=== PATIENT | male | born 1965 | race Caucasian/White ===

== ENCOUNTER 2018-06-03 16:38 | Outpatient (REF) | payer BC, SELFPAY ==
[2018-06-03 19:11] LABS: Anion Gap 8.8 mmol/L (3-11); BUN 12 mg/dL (7-18); CO2 28.2 mmol/L (21.0-32.0); CREATININE 1.04 mg/dL (0.70-1.30); Chloride 101 mmol/L (98-107); Cholesterol 250 mg/dL (50-200); Glucose 130 mg/dL (70-100); HDL Cholesterol 23 mg/dL (40-60); LDL CHOLESTEROL 75 mg/dL (<100); Potassium 4.3 mmol/L (3.5-5.1); Sodium 138 mmol/L (136-145); Triglyceride 843 mg/dL (30-150)
== END 2018-06-03 16:58 ==
LOC: NCHCN 16:38
PROVIDERS: PCP Internal Medicine; Visit Provider Internal Medicine
DX: Z13.220 Encounter for screening for lipoid disorders (principal); Z13.228 Encounter for screening for other metabolic disorders; Z00.00 Encounter for general adult medical examination without abnormal findings
CPT/HCPCS: 80048; 80061; 83721

== ENCOUNTER 2018-07-29 06:28 | Day surgery (SDC) | payer BC, SELFPAY ==
[2018-07-29 06:44] VITALS: BP 117/79; PULSE 84; RESP 18; TEMP 35; O2SAT 95
[2018-07-29] MEDS: Lactated Ringers 1,000 ML 80 ML IV (06:52)
--- NOTE | 2018-07-29 07:45 | BOWEL_PTH ---
PATIENT: Sunday Lainez LOC: [facility] U#:[id number] AGE/SX: 52/M ROOM: RE07/29/[address]: Luisana Demarco : 1965 BED: DIS: 07/29/2018 SPEC #: [id number] RECD: 07/29/18 12:58 STATUS: SIMONE HERNANDEZ #: [id number] MARGO: 07/29/18 07:[address]: Luisana Demarco DEPT: Surgical Specimen RECD BY: Syeda Zavala ENTERED: 07/29/18 13:01 SP TYPE: Bowel OTHR DR: Enrique Parikh Tissues: 1 - BIOPSY BOWEL 2 - BIOPSY BOWEL Procedures: GROSS AND MICRO LEVEL 4 Comments: [id number]
--- NOTE | 2018-07-29 08:11 | W.COLOREPORT ---
Date of service: 07/29/18 Time of Service: 08:11 Colonoscopy Report Date of procedure: 07/29/18 Pre-op diagnosis general: screening Procedure: polyps x3 Surgeon: Luisana Demarco Anesthesia proc note operative: MAC Estimated blood loss (mL): 2 Pathology: other (polyp x1 @ 60 X2 @ 20&25cm ) Complications: None Disposition: PACU Prep: Miralax Procedure Start Time: 07:35 Procedure End Time: 07:55 Procedure Description: Mr. Whitaker 52 old male seen the request of his PCP regarding routine colon cancer screening and is here today for colonoscopy. Informed consent was obtained explaining risks and benefits of the procedure including but not limited to bleeding infection perforation aspiration and complications and the anesthesia. Patient brought to endoscopy suite placed left lateral decubitus position. IV sedation is administered per the Department of anesthesia. Timeout is performed. Digital rectal exam was performed prior to beginning the procedure which reveals good tone, no hemorrhoids, prostate within normal limits. Previously lubricated move the scope was inserted in the rectum and insufflation was begun. The scope was passed up the rectosigmoid valves across the transverse colon down the ascending colon the cecum is achieved at 90 cm. Good prep is noted. there are no AVMs diverticuli or other abnormality apparent. he does have 3 small polyps. These do appear to be adenomatous. There is one at 60 cm and two at 20 cm. These are both removed with cold biting forcep. Specimen is retrieved. There is no bleeding noted. The scope was then withdrawn. Retroflexion is done. And there does not appear to be any hemorrhoidal disease. There is no signs of bleeding from the biopsy sites. Patient tolerated procedure well without complication and transferred to recovery room stable condition. Patient will need to have colonoscopy repeated in 3-5 years time depending on pathology results. We will contact patient with results of pathology thank you for allowing me to visit the care of this patient.
--- NOTE | 2018-07-29 08:15 | W.PM.DS.N ---
Date of service: 07/29/18 Time of Service: 08:15 DS: Diagnosis Discharge Diagnosis (1) Adenomatous polyp: Start date: 07/29/18 Status: Acute Asessment and Plan: x3 Discharge Plan Disposition Patient Disposition: HOME Condition: Good Discharge Details Reason For Visit: SCREENING Attending Provider: Luisana Demarco Primary Care Provider: Enrique Parikh Home Meds and New Rx's Prescriptions: Continued venlafaxine [Effexor XR] 150 mg capsule,extended release 24hr 150 mg PO DAILY RF: 0 Discontinued polyethylene glycol 3350 17 gram/dose powder 238 gm PO ONCE Qty: 238 RF: 0 bisacodyl [Dulcolax (bisacodyl)] 5 mg tablet,delayed release (DR/EC) 5 mg PO ONCE Qty: 4 RF: 0 Discharge Instructions Activity:: Activity as Tolerated Diet:: As Tolerated DS: Data Vitals/I&O Vitals and I&O: Vital Signs Temperature 35.0 C L 07/29/18 06:44 Pulse 84 07/29/18 06:44 Pulse Rhythm Regular 07/29/18 06:44 Respiratory Rate 18 07/29/18 06:44 Respiratory Depth Normal 07/29/18 06:44 Blood Pressure 117/79 07/29/18 06:44 Pulse Oximetry 95 07/29/18 06:44 Oxygen Delivery Method Room Air 07/29/18 06:44 Oxygen Flow Rate 0 07/29/18 06:44 Pain Level 0 07/29/18 06:44 Intake & Output 07/28/18 07/28/18 07/29/18 11:59 23:59 11:59 Intake Total 500 / 500 Balance 500 / 500 Weight 95.7 kg Intake: IV 500 / 500 PFSH Medical History Smoker (Acute) IVANNA (obstructive sleep apnea) (Chronic) 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
== END 2018-07-29 08:55 | disposition home or self-care (01) ==
PROVIDERS: PCP Internal Medicine; Visit Provider Surgery
PROC: 0DJD8ZZ Inspection of Lower Intestinal Tract, Via Natural or Artificial Opening Endoscopic (ICD-10-PCS; CPT 45378; principal; 2018-07-29 07:30)
DX: Z12.11 Encounter for screening for malignant neoplasm of colon (principal); D12.3 Benign neoplasm of transverse colon; D12.5 Benign neoplasm of sigmoid colon; G47.33 Obstructive sleep apnea (adult) (pediatric)
CPT/HCPCS: 45380; 88305; NC

== ENCOUNTER 2021-05-08 19:38 | Outpatient (REF) | payer OTHER, SELFPAY ==
[2021-05-08 20:32] LABS: Cholesterol 283 mg/dL (<200)
[2021-05-08 21:55] LABS: HDL Cholesterol 26 mg/dL (40-60); Triglyceride 2297 mg/dL (<150)
[2021-05-08 22:25] LABS: LDL CHOLESTEROL 66 mg/dL (<100)
== END 2021-05-08 19:39 | disposition home or self-care (01) ==
LOC: NCHCN 19:38
PROVIDERS: PCP Internal Medicine; Visit Provider Internal Medicine
DX: Z00.00 Encounter for general adult medical examination without abnormal findings (principal); E78.5 Hyperlipidemia, unspecified
CPT/HCPCS: 80048; 80061; 83721; 84443

== ENCOUNTER 2021-08-25 10:02 | Outpatient (REF) | payer OTHER, SELFPAY ==
--- NOTE | 2021-08-25 09:30 | SKI_PTH ---
PATIENT: Sunday Lainez LOC: [facility] U#:[id number] AGE/SX: 55/M ROOM: RE08/25/[address]: Luisana Demarco : 1965 BED: DIS: 08/25/2021 SPEC #: [id number] RECD: 08/25/21 12:02 STATUS: SIMONE REMihai #: [id number] MARGO: 08/25/21 09:[address]: Luisana Demarco DEPT: Surgical Specimen RECD BY: Syeda Zavala ENTERED: 08/25/21 12:03 SP TYPE: JOHAN GOLDSMITH DR: Enrique Parikh Tissues: 1 - SKIN CYST/TAG/DEBRIDEMENT Procedures: SKIN LEVEL 4 SPECIAL STAIN 1 Comments: [id number]
== END 2021-08-25 10:03 | disposition home or self-care (01) ==
LOC: LBN 10:02
PROVIDERS: PCP Internal Medicine; Visit Provider Surgery
DX: L92.9 Granulomatous disorder of the skin and subcutaneous tissue, unspecified (principal)
CPT/HCPCS: 88304; 88305; 88312

== ENCOUNTER 2023-05-21 00:20 | Inpatient (IN) | payer OTHER, SELFPAY ==
[2023-05-21] VITALS (50 sets, daily range): BP systolic 122–169; BP diastolic 56–101; PULSE 83–139; RESP 14–33; TEMP 35.6–37.4; O2SAT 89–95
--- NOTE | 2023-05-21 00:30 | RT.EKG_ITS ---
APPROVED REPORT Exam: Resting ECG Reason for Exam: elevated heart rate Patient Location: E HR:121 bpm ECG Measurements Heart Rate 121 AXIS CO 158 P 28 QRSd 95 QRS -56 QT 318 T 66 QTc 450 Conclusion Incomplete analysis due to missing data in precordial lead(s) Sinus tachycardia...rate> 99 LAD, consider left anterior fascicular block...axis(240,-40), S>R II III aVF poor tracing EKG repeated
--- NOTE | 2023-05-21 00:31 | W.ED.GENAD ---
Discharge Plan Disposition Patient Disposition: Admit to [facility] Condition: Fair Discharge Details Clinical Impression: Acute non-cardiogenic pulmonary edema, Thrombocytopenia, Sepsis Primary Care Provider: Enrique Parikh ED Provider: Robb Handley Home Meds and New Rx's Prescriptions: No Action venlafaxine [Effexor XR] 150 mg capsule,extended release 24hr 150 mg PO DAILY ibuprofen 200 mg capsule 800 mg PO Q6H PRN venlafaxine 75 mg tablet 75 mg PO DAILY Medical Decision Making MDM: Summary: Patient presented to the emergency department tachycardic with signs of sepsis and impending septic shock with unknown origin, partly related to an hand infection has been partially treated for 5 days. Sepsis protocol was started with IV fluids at 30 cc/kg, blood cultures and lactic acid were drawn and Zosyn was given empirically. He progressed successfully in the emergency department with the IV fluids given restored his heart rate to normal and now his heart rate is in the 90s blood pressure has remained stable and his color improved. Labs show initially lactic acidosis which improved with the fluids and antibiotics. 6 x-ray shows bilateral interstitial infiltrates with mild pulmonary edema. Znqin-gx-durt ultrasound shows a normal hyperdynamic heart with a collapsed inferior vena cava compatible with hypovolemia due to sepsis. EKG does not show any acute abnormality and troponin was negative. CBC shows a mild elevation of the white count with a left shift but also thrombocytopenia. All this data is relevant because it shows the patient was impending septic shock and sepsis from an unknown origin. Ultrasound Bhakta protocol did not show any intra-abdominal pathology and just coincidently a liver cyst. CAT scan of the abdomen pelvis was obtained as well does not show any intra-abdominal pathology but corroborates the ultrasonic findings and chest x-ray findings of mild pulmonary edema. Patient has required 2 L of oxygen to maintain his oxygen saturation normal Data Review Analysis All the data on this patient was reviewed by me including laboratory and imaging studies as well as bedside studies performed by me Independent review of Studies Imaging Imaging shows an x-ray with mild pulmonary edema CAT scan shows no intra-abdominal pathology but also shows mild pulmonary edema, [id number] ultrasound rapid ultrasound shock shows normal hyperdynamic heart with hypovolemia probably due to sepsis and some B-lines in the lungs as well as noncardiogenic pulmonary edema Lab: Labs as above show initial lactic acidosis and thrombocytopenia lactic acidosis improved with IV fluid hydration. Risk Stratification: Patient with high risk of impending septic shock came probably with sepsis of unknown origin he was treated Thakur with Zosyn but will need to be admitted to the hospital for further studies for he is thrombocytopenic see the etiology of this sepsis. Hospitalist has also suggested Bubba and provides coverage with cefepime and vancomycin. He will be admitted to the hospital Differential Diagnosis: 1. Sepsis 2. Septic shock 3. Tachyarrhythmia 4. Allergic reaction and anaphylaxis 5. Consultants: I spoken with the hospitalist who agrees and will admit the patient to the hospital Shared disposition: Patient is understand the situation and agree that he will need to be admitted Impression: Medical Records Medical records reviewed: Yes I reviewed the patient's medical records. Lab Data Lab results reviewed: Yes I reviewed the patient's lab results. ECG Data Attestation: I personally reviewed and interpreted this ECG (s) as follows: Prior ECG tracings: not available for review Interpretation: Sinus tachycardia heart rate of [address]-T's changes right bundle branch block HPI General Date/Time Provider Initiated Documentation: 05/21/23 00:31. HPI Narrative: Patient presents to the emergency department complaining of 1 hour of feeling very cold he states he got in the shower started having shaking chills not feeling good. called the paramedics and he came in he was shaking and they offered to bring him to the hospital but she decided to drive himself with his . State has been treated for a right hand infection with Bactrim in the last 4 days but states sometimes he can get pus out of his finger but there is no wound. Denies any pain denies any cough denies any shortness of breath denies abdominal pain Related Data Home Medications Medication Instructions Recorded Confirmed venlafaxine 150 mg 150 mg PO DAILY 06/10/18 05/21/23 capsule,extended release 24 hr (Effexor XR) venlafaxine 75 mg tablet 75 mg PO DAILY 07/17/21 05/21/23 ibuprofen 200 mg capsule 800 mg PO Q6H PRN 07/21/21 05/21/23 Allergies Allergy/AdvReac Type Severity Reaction Status Date / Time oxycodone AdvReac Severe Avoids all Verified 05/21/23 00:30 narcotics General Stated Complaint: Allergic ERICA: 2 Review of Systems Narrative: Review of Systems: Constitutional: No fevers, chills, sweats Eye: No recent visual problems ENT: No ear pain, nasal congestion, sore throat Respiratory: No shortness of breath, cough Cardiovascular: No Chest pain, palpitations, syncope Gastrointestinal: No nausea, vomiting, diarrhea Genitourinary: No hematuria [place]/Lymph: Negative for bruising tendency, swollen lymph glands Endocrine: Negative for excessive thirst, excessive hunger Musculoskeletal: No back pain, neck pain, joint pain, muscle pain, decreased range of motion Integumentary: No rash, pruritus, abrasions Neurologic: Alert & oriented X 4 Psychiatric: No anxiety, depression PFSH All Active Problems Sepsis (Acute) Thrombocytopenia (Chronic) Acute non-cardiogenic pulmonary edema (Acute) Foreign body (FB) in soft tissue (Acute) partial removal 08/2021. 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 mg History of depression Hyperlipidemia Social History Smoking/Tobacco Use Status: Current every day Tobacco Type: cigarettes Smoking risk assessment performed?: Yes Alcohol Intake: never Drug use: Current Sobriety Substance use type: does not use Housing: house Do you feel safe at home: Yes Do you feel safe in your relationship?: Yes Exam Narrative Exam Narrative: Exam; vitals signs as reported above tachycardic and febrile Constitutional; I ill-appearing in mild acute distress, febrile temperature of 100.5 General: cooperative, ill appearing, comfortable and no acute distress HEENT: Head: normal to inspection, no palpable skull fracture and normocephalic atraumatic Eyes: : appearance normal, both eyes and all related structures EOM intact bilaterally Pupils: PERRL : conjunctiva normal Direct ophthalmoscopy: normal light reflex, normal conjunctiva, normal visual acuity Ears: Normal TM, normal external canal Nose: normal no rhinorreha Neck no JVD, supple non tender Neck: normal visual inspection, full ROM and no lymphadenopathy Chest: normal inspection of the chest Respiratory : normal respiratory effort and able to speak in complete sentences no wheezing mild bibasilar rales Cardio Rate: Tachycardic rate, rhythm: regular rhythm normal heart sounds S1 and S2 no murmurs, gallops, or rubs GI : normal to inspection, normal bowel sounds, soft, non tender, non distended, no organomegaly Back/Spine/ no CVA tenderness Thoracic/Lumbar Spine: no tenderness or deformities Skin no rashes or lesions Neuro: patient alert oriented x 4 and no meningeal signs, Cranial Nerves: CN's II-XI intact bilaterally, Cognition: normal cognition, Speech: speech normal, Gait: normal gait, Depp tendon reflexes normal 2+ muscle strength 5/5 bilaterally Extremities, no edema, full range of motion, normal strength mottled extremities \ Course Vital Signs Vital signs: Vital Signs Temperature 36.1 C L 05/21/23 00:25 Pulse 139 H 05/21/23 00:25 Respiratory Rate 16 05/21/23 00:25 Blood Pressure 156/87 H 05/21/23 00:25 Pulse Oximetry 93 05/21/23 00:25 Temperature 36.1 C L 05/21/23 00:25 Temperature Source Temporal Artery Scan 05/21/23 00:25 Pulse 139 H 05/21/23 00:25 Respiratory Rate 16 05/21/23 00:25 Blood Pressure 156/87 H 05/21/23 00:25 Blood Pressure Position Sitting 05/21/23 00:25 Pulse Oximetry 93 05/21/23 00:25 Oxygen Delivery Method Room Air 05/21/23 00:25 Oxygen Flow Rate 0 05/21/23 00:25 Pain Level 0 05/21/23 00:25 Critical Care Time Critical Care Time Critical Care Time: Yes Total Critical Care Time: 45 Attestation: Critical care time in this patient was the 45 minutes aside from procedure time for pending cardiovascular collapse due to sepsis POCUS Exam (ED) BHAKTA Exam DATE OF EXAM: 05/21/23 TIME OF EXAM: 01:00 PROVIDER THAT PERFORMED THE STUDY: Robb Handley IS THIS A REPEAT EXAM DURING THIS ENCOUNTER: No REASON FOR EXAM: Shock VISUALIZED STRUCTURES: Aorta, Cardiac Four Chambers, Heart (hyperdynamic), Inferior Vena Cava, Lung/left side, Lung/right side and Duncan's pouch PERTINENT FINDINGS/IMPRESSION: Abnormal IVC, (collapsed) details of abnormalities: Sepsis and severe hypovolemia DIFFERENTIAL DIAGNOSES: hypovolemia INCIDENTAL FINDINGS: liver cyst Echocardiography/Transthoracic Limited Exam: Exam Complete Chest Limited Exam: Exam Complete Abdominal Limited Exam: Exam Complete Retroperitoneal Limited Exam: Exam Complete
--- NOTE | 2023-05-21 00:45 | DI.RAD_ITS ---
Exam(s) XR PORTABLE CHEST AP EXAM: XR PORTABLE CHEST AP CLINICAL HISTORY: fever. cough TECHNIQUE: 2D digital imaging was performed of the chest. One image was obtained. An AP view was ob tained. COMPARISON: No exams were available for comparison FINDINGS: MEDIASTINUM: Normal. HEART: Normal. PULMONARY VASCULATURE: Normal. LUNGS: No focal consolidating infiltrates. PLEURAL SPACE: No pleural effusion or pneumothorax. BONE:Within normal limits for the patient's age. OTHER FINDINGS:Normal. IMPRESSION: No focal consolidating infiltrates. DATA REPOSITORY: RADIATION DOSE DELIVERED:
--- NOTE | 2023-05-21 00:45 | RT.EKG_ITS ---
APPROVED REPORT Exam: Resting ECG Reason for Exam: rapid heart rate Patient Location: E HR:118 bpm ECG Measurements Heart Rate 118 AXIS CO 155 P 24 QRSd 101 QRS -47 QT 316 T 62 QTc 443 Conclusion Sinus tachycardia...rate> 99 LAD, consider left anterior fascicular block...axis(240,-40), S>R II III aVF Borderline ST elevation, anterior leads...ST >0.15mV in V1-V4
[2023-05-21 01:02] LABS: Abs Immature Grans 0.03 10^3/uL (0.0-0.06); Absolute Basophil Count 0.03 10^3/uL (0.0-0.2); Absolute Eosinophil Count 0.04 10^3/uL (0.0-0.7); Absolute Lymphocyte Count 1.95 10^3/uL (1.2-3.4); Absolute Monocyte Count 0.15 10^3/uL (0.1-0.8); Absolute Neutrophil Count 8.08 10^3/uL (1.2-6.7); Basophils % 0.3; Eosinophils % 0.4; HCT 46.7 % (40.0-50.0); Immature Grans % 0.3; MCH 28.5 pg (27.0-33.0); MCHC 34.3 % (32.0-36.0); MCV 83 fL (80-95); Monocytes % 1.5; Neutrophils % 78.5; RBC 5.61 10^6/uL (4.36-5.78); RDW 14.9 % (11.8-14.1); RDW-SD 45.5 fL; WBC 10.28 10^3/uL (4.4-10.8)
[2023-05-21] MEDS: PIPERACILLIN/TAZO 4.5 GM in Normal Saline 100 ML IVPB (01:05)
[2023-05-21 01:06] LABS: Lactate 2.1 mmol/L (0.6-1.4)
[2023-05-21 01:11] LABS: BE (Venous) 0 mmol/L (-2-3); HCO3 (Venous) 25 mmol/L (23-28); O2 Sat (Venous) 85 %; TCO2 (Venous) 21 mmol/L (24-29); pCO2 (Venous) 39 mmHg (41-51); pH (Venous) 7.41 (7.31-7.41); pO2 (Venous) 49 mmHg
[2023-05-21 01:16] LABS: Platelet Count 33 10^3/uL (130-400)
[2023-05-21 01:19] LABS: Prothrombin Time 10.4 sec (9.1-11.1)
[2023-05-21 01:24] LABS: Albumin 3.4 g/dL (3.4-5.0); Alkaline Phosphatase 114 U/L (46-116); Anion Gap 13.2 mmol/L (3-11); BUN 20 mg/dL (7-18); Bilirubin, Total 0.3 mg/dL (0.2-1.0); CO2 21.8 mmol/L (21.0-32.0); CREATININE 0.9 mg/dL (0.70-1.30); Chloride 101 mmol/L (98-107); Estimated GFR 100.86 (mL/min/1.73m2); Glucose 143 mg/dL (74-106); Potassium 3.6 mmol/L (3.5-5.1); Sodium 136 mmol/L (136-145); Total Protein 7.6 g/dL (6.4-8.2); Troponin I < 50 ng/L (<or=60)
[2023-05-21 01:39] LABS: ALT 23 U/L (16-63); AST 17 U/L (15-37)
--- NOTE | 2023-05-21 01:45 | DI.CT_ITS ---
Exam(s) CT ABDOMEN PELVIS W EXAM: CT ABDOMEN PELVIS W CLINICAL HISTORY: abdominal pain TECHNIQUE: Imaging Protocol: Axial computed tomography images with coronal and sagittal reformatted images were created and reviewed CONTRAST MATERIAL: Intravenous: Omnipaque 350 Contrast volume:100 mL Oral: No COMPARISON: CR,XR XR PORTABLE CHEST AP from 05/21/2023 FINDINGS: ABDOMEN: Lung Bases: Mild dependent atelectasis. Liver: Normal density. There is a 2.9 cm cyst in the left lobe of the liver. There is a tiny hypoden sity in the posterior segment of the right lobe of the liver. It is too small for further characteri zation. It likely reflects a small cyst. The liver measures 18 cm in length. Portal, Superior Mesenteric, and Splenic Veins: Unremarkable. Gallbladder and Biliary Tract: No radiodense calculus or dilation. Pancreas: Normal density, no abnormal calcifications or inflammatory process. Spleen: The spleen is enlarged. Adrenals: No masses seen. Kidneys: Normal size, contour and axis. No radiodense stones or obstructive uropathy. No masses seen. Abdominal Aorta: Abdominal portion non-dilated. Atherosclerosis. Bowel: The stomach is incompletely distended limiting evaluation. Appendix is unremarkable. There is no evidence of bowel obstruction or wall thickening. Peritoneal Cavity: No ascites, collection or mesenteric inflammatory response. No free air. Lymph Nodes: Within normal limits. Bones: Within normal limits for the patient's age. Soft Tissues: There is a small fat containing umbilical hernia. PELVIS: Bladder: Symmetric distention, no gross wall thickening. Reproductive Organs: Unremarkable as visualized. Lymph Nodes: Within normal limits. Bones: Within normal limits for the patient's age. IMPRESSION: 1. Mild dependent atelectatic changes in the lungs. 2. No evidence of bowel obstruction or bowel inflammatory process. Normal appendix. 3. Hepatosplenomegaly. RADIATION DOSE DELIVERED: Total DLP DATA REPOSITORY: All CT scans at this facility are submitted to the National Radiology Data Registry (NRDR) Dose Index Registry (DIR) with the [employer] ([employer]). RADIATION OPTIMIZATION: All CT scans at this facility use at least one of these dose optimization te chniques: automated exposure control; mA and/or kV adjustment per patient size (includes targeted exa ms where dose is matched to clinical indication); or iterative reconstruction.
[2023-05-21 02:25] LABS: COVID-19 PCR Negative (Negative); Influenza A PCR Negative (Negative); Influenza B PCR Negative (Negative); RSV PCR Negative (Negative)
[2023-05-21 02:34] LABS: Source Nasopharynx
[2023-05-21] MEDS: Omnipaque 350 MG/ML 100 ML BTL IJ (02:55)
[2023-05-21] MEDS: Normal Saline Flush 10 ML SYR IVP ×4 (02:56→21:28)
[2023-05-21] MEDS: Normal Saline - Diluent 50 ML VIAL IJ (02:56)
--- NOTE | 2023-05-21 03:28 | DI.VRAD_ITS ---
PROCEDURE INFORMATION: Exam: XR Chest Exam date and time: 05/21/2023 1:43 AM Age: 57 years old Clinical indication: Cough and fever TECHNIQUE: Imaging protocol: Radiologic exam of the chest. Views: 1 view. COMPARISON: No relevant prior studies available. FINDINGS: Lungs: Unremarkable. No consolidation. Pleural spaces: Unremarkable. No pleural effusion. No pneumothorax. Heart/Mediastinum: Unremarkable. No cardiomegaly. Bones/joints: Unremarkable. IMPRESSION: No acute findings. Dictated and Authenticated by: Mendel Corley MD. Ordering:JAKE Zamudio MD
--- NOTE | 2023-05-21 03:31 | DI.VRAD_ITS ---
PROCEDURE INFORMATION: Exam: CT Abdomen And Pelvis With Contrast Exam date and time: 05/21/2023 2:44 AM Age: 57 years old Clinical indication: Abdominal pain; Generalized TECHNIQUE: Imaging protocol: Computed tomography of the abdomen and pelvis with contrast. Contrast material: OMNI 350; Contrast volume: 100 ml; Contrast route: INTRAVENOUS (IV); COMPARISON: CR XR PORTABLE CHEST AP 05/21/2023 1:43 AM FINDINGS: Lungs: Smooth interlobular septal thickening compatible with hydrostatic interstitial pulmonary edema/CHF. Liver: Incidental hepatic cysts. Gallbladder and bile ducts: Normal. No calcified stones. No ductal dilation. Pancreas: Unremarkable. Spleen: Splenomegaly. Adrenal glands: Normal. No mass. Kidneys and ureters: Normal. No hydronephrosis. Stomach and bowel: Unremarkable. No bowel wall thickening or intestinal obstruction. Appendix: Normal appendix. Intraperitoneal space: Unremarkable. No pneumoperitoneum. No abscess. Vasculature: Unremarkable. Lymph nodes: Unremarkable. Urinary bladder: Unremarkable as visualized. Reproductive: Unremarkable as visualized. Bones/joints: Unremarkable. No acute fracture. Soft tissues: Unremarkable. IMPRESSION: 1. Hydrostatic interstitial pulmonary edema/CHF. 2. Splenomegaly. Dictated and Authenticated by: Mendel Corley MD. Ordering:JAKE Zamudio MD
[2023-05-21 03:44] LABS: Lactate 1.1 mmol/L (0.6-1.4)
[2023-05-21 03:47] LABS: Bilirubin Negative (Negative); Blood Trace-intact (Negative); Clarity Clear (Clear); Glucose Negative (Negative); Ketones Negative (Negative); Leukocyte Esterase Negative (Negative); Nitrite Negative (Negative); Urobilinogen 0.2 mg/dL (Up to 0.2)
[2023-05-21 03:56] LABS: Bacteria Rare HPF (Negative); C & S Indicated? No; Casts Negative LPF (Negative); Crystals Negative HPF (Negative); Epithelial Cells Negative HPF (Negative); Mucus Negative (Negative); Other Cells Rare Renal (Negative); WBC Negative HPF (0-5)
[2023-05-21 04:03] LABS: Troponin I < 50 ng/L (<or=60)
[2023-05-21] MEDS: methylPREDNISolone SUCC 125 MG VIAL IVP (04:11)
--- NOTE | 2023-05-21 06:25 | HPE_ITS ---
Date of service: 05/21/23 Time of Service: 06:25 Assessment and Plan Assessment and plan (1) Sepsis: Start date: 05/21/23 Status: Acute Assessment and plan: This is a 57-year-old gentleman presenting with acute early septic syndrome with most likely source from his right hand with recurrent infection in the middle finger. He has had recurrent drainage from this area and may have osteomyelitis as a source of his sudden onset of symptoms. Since patient did not have a significant elevated WBC with thrombocytopenia but elevated CRP, tachycardia without hypotension and lactic acidosis which responded to IV fluid resuscitation. With thrombocytopenia, tickborne disease is also possibility of infection and high-dose cefepime should cover this with doxycycline can be added if there is increased concern. He does not appear to need any further fluid resuscitation eating and drinking well and having some fluid overload with imaging revealing early B-lines by POC ultrasound done by the ED physician and CT imaging concerned about some atelectasis or fluid overload. This does not appear to be any pneumonia. He was hypoxic which is clearing. Patient did have fever upon presentation which has cleared. He is a full code. Qualifiers: Acute respiratory failure type: with hypoxia Sepsis acute organ dysfunction status: with acute organ dysfunction Sepsis type: sepsis due to unspecified organism Severe sepsis acute organ dysfunction type: acute respiratory failure Severe sepsis shock status: without septic shock Qualified Code(s): A41.9 - Sepsis, unspecified organism; R65.20 - Severe sepsis without septic shock; J96.01 - Acute respiratory failure with hypoxia (2) Acute non-cardiogenic pulmonary edema: Start date: 05/21/23 Status: Acute Assessment and plan: Patient appears to be more comfortable and not needing oxygen with tachycardia resolved. Observe closely with consideration of echocardiogram though this is not urgent. This appears to be associate with his acute sepsis syndrome and hopefully with discovery of infectious etiology and treatment this problem will resolve. He is a smoker. (3) Thrombocytopenia: Start date: 05/21/23 Status: Acute Assessment and plan: Acute onset and possibly associate with acute process and infectious disease. Monitor off DVT prophylaxis other than compressions because of risk of bleeding. Trend labs. (4) Depression: Assessment and plan: On medical regimen and will continue same. Qualifiers: Depression Type: other depression Qualified Code(s): F32.89 - Other specified depressive episodes (5) IVANNA (obstructive sleep apnea): Status: Chronic Assessment and plan: Not on treatment but diagnosed as severe in the past. Patient is a smoker. History of Present Illness History of Present Illness Chief Complaint: Chills and rigors with general malaise Narrative: This is a 57-year-old male patient presented to ED with sudden onset of chills and rigors at home 1 hour prior to presentation with patient drive himself to the ED. EMS was called but patient refused transfer. He has had recent repeated infections of his right middle finger which is status post injury about 12 years ago from a table saw. He has been having infections since the summer with the last infection treated with Bactrim DS and being days prior to this presentation. He states that he has intermittent drainage of pus around the cuticle area of his injury on the right middle finger. He has had no swollen lymph nodes or fever with his recent infections. He did have fever in the ED upon this presentation. Evaluation did reveal early shock syndrome with patient treated by shock protocol. He did not have hypotension but did have an increased lactic acid which has normalized with 3 L of fluids. Patient did appear fluid overloaded and no further fluids were given with patient vital signs stable without tachycardia or hypotension. He did receive Solu-Medrol one-time dose and was initiated on cefepime with vancomycin to cover possible bacteremia from his recurrent hand infection. Patient clinically was low as well and a tick panel was sent with consideration of adding doxycycline if there is some concern. Cefepime may cover tickborne disease as well. At the time I saw the patient he was not having rigors or fever and was comfortable. He had no shortness of breath though he appeared to have fluid overload in his lungs which appear to be noncardiogenic. He was slightly hypoxic and required O2 supplementation during his initial treatment. He appears to be improving. He will not be diuresed. The patient denies any rash recently and has no abdominal discomfort or chest pain. He also did not have any shortness of breath at presentation. He does feel generally tired which persists. The patient does have a history of untreated severe sleep apnea, previous opioid abuse but no IV drug use in the past and patient is a smoker wanting nicotine supplement during his hospital stay. He has had no bruising despite his thrombocytopenia which appears acute. Patient is a full code. Review of Systems Narrative: 13 point review of systems otherwise unrevealing or stable. PFSH All Active Problems (Updated 05/21/23 @ 06:38 by Tello De Leon) Sepsis (Acute) Thrombocytopenia (Acute) Acute non-cardiogenic pulmonary edema (Acute) Foreign body (FB) in soft tissue (Acute) partial removal 08/2021. 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 mg History of depression Hyperlipidemia Social History Smoking/Tobacco Use Status: Current every day Tobacco Type: cigarettes Smoking risk assessment performed?: Yes Alcohol Intake: never Drug use: Current Sobriety Substance use type: does not use Housing: house Do you feel safe at home: Yes Do you feel safe in your relationship?: Yes Meds Allergies and Home Medications Allergies Allergy/AdvReac Type Severity Reaction Status Date / Time oxycodone AdvReac Severe Avoids all Verified 05/21/23 00:30 narcotics Home Medications Medication Instructions Recorded Confirmed Type venlafaxine 150 mg 150 mg PO QPM 06/10/18 05/21/23 History capsule,extended release 24 hr (Effexor XR) ibuprofen 200 mg capsule 800 mg PO Q6H PRN 07/21/21 05/21/23 History venlafaxine 75 mg capsule,extended 75 mg PO QPM 05/21/23 05/21/23 History release 24 hr (Effexor XR) Exam Narrative Exam Narrative: General: Patient appears appropriate for age, tall and thin, in no acute distress and alert and oriented x 3. HEENT: Normocephalic, eyes with pupils equal react to light symmetrically, extraocular move intact and sclera anicteric. Oropharynx with moist mucosa. Neck: Supple without JVD. Lymph: No grossly palpable lymphadenopathy. Back: Normal posture without CVA tenderness. Lungs: Fair aeration and clear to auscultation percussion with no focalizing rales or rhonchi. Bronchovesicular breath sounds diffusely. No expiratory wheeze. Heart: Regular rate and rhythm with no murmurs or gallops appreciated. Abdomen: Normal contour, soft nontender to palpation with no palpable hepatosplenomegaly. Bowel sounds positive all quadrants. Genitalia/rectal: Exam deferred. Skin: Actinic changes diffusely without suspicious lesions, no rashes noted. Otherwise normal color, warm and dry. Extremities: Without clubbing, cyanosis or pitting edema. Peripheral pulses intact. Right middle finger has none draining skills over patch near the dorsal cuticle with no palpable fluctuation. The nail appears normal. Patient does have cold hypertrophic scar over the palmar aspect of his right distal middle finger. Neuro: Cranial nerves II through XII grossly intact, no focalizing motor deficits. No tremor. Psych: Normal affect and mood. No abnormal thought processes. Remote and recent memory intact. Results Imaging Imaging Studies: EXAM: CT ABDOMEN PELVIS W CLINICAL HISTORY: abdominal pain TECHNIQUE: Imaging Protocol: Axial computed tomography images with coronal and sagittal reformatted images were created and reviewed CONTRAST MATERIAL: Intravenous: Omnipaque 350 Contrast volume:100 mL Oral: No COMPARISON: CR,XR XR PORTABLE CHEST AP from 05/21/2023 FINDINGS: ABDOMEN: Lung Bases: Mild dependent atelectasis. Liver: Normal density. There is a 2.9 cm cyst in the left lobe of the liver. There is a tiny hypodensity in the posterior segment of the right lobe of the liver. It is too small for further characterization. It likely reflects a small cyst. The liver measures 18 cm in length. Portal, Superior Mesenteric, and Splenic Veins: Unremarkable. Gallbladder and Biliary Tract: No radiodense calculus or dilation. Pancreas: Normal density, no abnormal calcifications or inflammatory process. Spleen: The spleen is enlarged. Adrenals: No masses seen. Kidneys: Normal size, contour and axis. No radiodense stones or obstructive uropathy. No masses seen. Abdominal Aorta: Abdominal portion non-dilated. Atherosclerosis. Bowel: The stomach is incompletely distended limiting evaluation. Appendix is unremarkable. There is no evidence of bowel obstruction or wall thickening. Peritoneal Cavity: No ascites, collection or mesenteric inflammatory response. No free air. Lymph Nodes: Within normal limits. Bones: Within normal limits for the patient's age. Soft Tissues: There is a small fat containing umbilical hernia. PELVIS: Bladder: Symmetric distention, no gross wall thickening. Reproductive Organs: Unremarkable as visualized. Lymph Nodes: Within normal limits. Bones: Within normal limits for the patient's age. IMPRESSION: 1. Mild dependent atelectatic changes in the lungs. 2. No evidence of bowel obstruction or bowel inflammatory process. Normal appendix. 3. Hepatosplenomegaly. EXAM: XR PORTABLE CHEST AP CLINICAL HISTORY: fever. cough TECHNIQUE: 2D digital imaging was performed of the chest. One image was obtained. An AP view was obtained. COMPARISON: No exams were available for comparison FINDINGS: MEDIASTINUM: Normal. HEART: Normal. PULMONARY VASCULATURE: Normal. LUNGS: No focal consolidating infiltrates. PLEURAL SPACE: No pleural effusion or pneumothorax. BONE:Within normal limits for the patient's age. OTHER FINDINGS:Normal. IMPRESSION: No focal consolidating infiltrates. Labs 05/21/23 00:53 05/21/23 00:53 Labs: Laboratory Results - last 24 hr 05/21/23 05/21/23 05/21/23 00:53 00:53 00:53 WBC 10.28 RBC 5.61 Hgb 16.0 Hct 46.7 MCV 83 MCH 28.5 MCHC 34.3 RDW 14.9 H Plt Count 33 L MPV Immature Gran % 0.3 Neutrophils % 78.5 Lymphocytes % 19.0 Monocytes % 1.5 Eosinophils % 0.4 Basophils % 0.3 Nucleated RBC % 0.0 Absolute Neutrophils 8.08 H Absolute Lymphocytes 1.95 Absolute Monocytes 0.15 Absolute Eosinophils 0.04 Absolute Basophils 0.03 PT 10.4 INR 1.0 VBG pH 7.41 VBG pCO2 39 L VBG pO2 49 VBG HCO3 25 VBG Total CO2 21 L VBG O2 Saturation 85 VBG Base Excess 0 VBG Lactate 2.1 H Sodium 136 Potassium 3.6 Chloride 101 Carbon Dioxide 21.8 Anion Gap 13.2 H BUN 20 H Creatinine 0.9 Est GFR (CKD-EPI 2020) 100.86 Glucose 143 H Calcium 8.0 L Total Bilirubin 0.3 AST 17 ALT 23 Alkaline Phosphatase 114 Troponin I < 50 C-Reactive Protein 1.20 H Total Protein 7.6 Albumin 3.4 Urine Color Urine Clarity Urine pH Ur Specific [place] Urine Protein Urine Ketones Urine Blood Urine Nitrite Urine Bilirubin Urine Urobilinogen Ur Leukocyte Esterase Urine RBC Urine WBC Ur Epithelial Cells Urine Crystals Urine Bacteria Urine Casts Urine Mucus Urine Other Ur Culture Indicated? Urine Glucose COVID-19 Source Cancelled Nasopharynx SARS-CoV-2 (PCR) Cancelled Negative Influenza Type A (PCR) Negative Influenza Type B (PCR) Negative RSV (PCR) Negative 05/21/23 05/21/23 03:28 03:32 WBC RBC Hgb Hct MCV MCH MCHC RDW Plt Count MPV Immature Gran % Neutrophils % Lymphocytes % Monocytes % Eosinophils % Basophils % Nucleated RBC % Absolute Neutrophils Absolute Lymphocytes Absolute Monocytes Absolute Eosinophils Absolute Basophils PT INR VBG pH VBG pCO2 VBG pO2 VBG HCO3 VBG Total CO2 VBG O2 Saturation VBG Base Excess VBG Lactate 1.1 Sodium Potassium Chloride Carbon Dioxide Anion Gap BUN Creatinine Est GFR (CKD-EPI 2020) Glucose Calcium Total Bilirubin AST ALT Alkaline Phosphatase Troponin I < 50 C-Reactive Protein Total Protein Albumin Urine Color Yellow Urine Clarity Clear Urine pH 6.0 Ur Specific [place] 1.010 Urine Protein Negative Urine Ketones Negative Urine Blood Trace-intact H Urine Nitrite Negative Urine Bilirubin Negative Urine Urobilinogen 0.2 Ur Leukocyte Esterase Negative Urine RBC 3-5 H Urine WBC Negative Ur Epithelial Cells Negative Urine Crystals Negative Urine Bacteria Rare Urine Casts Negative Urine Mucus Negative Urine Other Rare Renal Ur Culture Indicated? No Urine Glucose Negative COVID-19 Source SARS-CoV-2 (PCR) Influenza Type A (PCR) Influenza Type B (PCR) RSV (PCR) Last Vital Signs Temp 37.4 C 05/21/23 00:50 Pulse 86 05/21/23 06:00 Resp 22 05/21/23 06:00 BP 136/70 05/21/23 04:01 Pulse Ox 92 05/21/23 06:00 Time Spent Time spent with Patient: >75 minutes Time was spent: preparing to see the patient(eg.review tests), obtaining and/or reviewing separately otained hiistory, ordering medications,tests, procedures, referring, communicating with other health residential caregiver, indepentently interpreting results and care coordination
[2023-05-21 07:40] LABS: Lactate 0.9 mmol/L (0.6-1.4)
[2023-05-21 08:03] LABS: Lab Add On Test COMPLETED
[2023-05-21 08:14] LABS: C-Reactive Protein 1.77 mg/dL (0.0-0.3)
[2023-05-21 08:36] LABS: Procalcitonin 2.2 ng/mL
--- NOTE | 2023-05-21 08:42 | DI.RAD_ITS ---
Exam(s) XR FINGER RT MIDDLE EXAM: XR FINGER RT MIDDLE CLINICAL HISTORY: Recurrent cellulitis over old injury. TECHNIQUE: 2D digital imaging was performed of the right finger. Three views were obtained. PA/AP, oblique, and lateral views were obtained. COMPARISON: No exams were available for comparison FINDINGS: BONES: No acute or healing fracture is present. No bony destructive lesion is seen. JOINTS: No dislocation present. The joint spaces are well maintained. SOFT TISSUE: Normal. IMPRESSION: 1. No evidence of acute fracture, dislocation, or subluxation. 2. No radiographic findings to suggest osteomyelitis. DATA REPOSITORY: RADIATION DOSE DELIVERED:
[2023-05-21] MEDS: VANCOMYCIN 2,500 MG in Normal Saline 500 ML 200 MG IVPB (08:47)
[2023-05-21] MEDS: Nicotine 14 MG/24 HR PATCH TD (08:48)
--- NOTE | 2023-05-21 08:48 | W.PM.PROGNOT ---
Date of Service Date of service: 05/21/23 Time of Service: 08:48 Objective Last Vital Signs Temp 36.0 C L 05/21/23 07:36 Pulse 83 05/21/23 07:36 Resp 18 05/21/23 07:36 BP 130/77 05/21/23 07:36 Pulse Ox 91 L 05/21/23 06:09 Laboratory Results - last 24 hr 05/21/23 05/21/23 05/21/23 00:53 00:53 00:53 WBC 10.28 RBC 5.61 Hgb 16.0 Hct 46.7 MCV 83 MCH 28.5 MCHC 34.3 RDW 14.9 H Plt Count 33 L MPV Immature Gran % 0.3 Neutrophils % 78.5 Lymphocytes % 19.0 Monocytes % 1.5 Eosinophils % 0.4 Basophils % 0.3 Nucleated RBC % 0.0 Absolute Neutrophils 8.08 H Absolute Lymphocytes 1.95 Absolute Monocytes 0.15 Absolute Eosinophils 0.04 Absolute Basophils 0.03 PT 10.4 INR 1.0 VBG pH 7.41 VBG pCO2 39 L VBG pO2 49 VBG HCO3 25 VBG Total CO2 21 L VBG O2 Saturation 85 VBG Base Excess 0 VBG Lactate 2.1 H Sodium 136 Potassium 3.6 Chloride 101 Carbon Dioxide 21.8 Anion Gap 13.2 H BUN 20 H Creatinine 0.9 Est GFR (CKD-EPI 2020) 100.86 Glucose 143 H Calcium 8.0 L Total Bilirubin 0.3 AST 17 ALT 23 Alkaline Phosphatase 114 Troponin I < 50 C-Reactive Protein 1.20 H Total Protein 7.6 Albumin 3.4 Procalcitonin Urine Color Urine Clarity Urine pH Ur Specific [place] Urine Protein Urine Ketones Urine Blood Urine Nitrite Urine Bilirubin Urine Urobilinogen Ur Leukocyte Esterase Urine RBC Urine WBC Ur Epithelial Cells Urine Crystals Urine Bacteria Urine Casts Urine Mucus Urine Other Ur Culture Indicated? Urine Glucose COVID-19 Source Cancelled Nasopharynx SARS-CoV-2 (PCR) Cancelled Negative Influenza Type A (PCR) Negative Influenza Type B (PCR) Negative RSV (PCR) Negative Add-On Test Request 05/21/23 05/21/23 05/21/23 03:28 03:32 07:25 WBC RBC Hgb Hct MCV MCH MCHC RDW Plt Count MPV Immature Gran % Neutrophils % Lymphocytes % Monocytes % Eosinophils % Basophils % Nucleated RBC % Absolute Neutrophils Absolute Lymphocytes Absolute Monocytes Absolute Eosinophils Absolute Basophils PT INR VBG pH VBG pCO2 VBG pO2 VBG HCO3 VBG Total CO2 VBG O2 Saturation VBG Base Excess VBG Lactate 1.1 0.9 Sodium Potassium Chloride Carbon Dioxide Anion Gap BUN Creatinine Est GFR (CKD-EPI 2020) Glucose Calcium Total Bilirubin AST ALT Alkaline Phosphatase Troponin I < 50 C-Reactive Protein 1.77 H Total Protein Albumin Procalcitonin 2.2 Urine Color Yellow Urine Clarity Clear Urine pH 6.0 Ur Specific [place] 1.010 Urine Protein Negative Urine Ketones Negative Urine Blood Trace-intact H Urine Nitrite Negative Urine Bilirubin Negative Urine Urobilinogen 0.2 Ur Leukocyte Esterase Negative Urine RBC 3-5 H Urine WBC Negative Ur Epithelial Cells Negative Urine Crystals Negative Urine Bacteria Rare Urine Casts Negative Urine Mucus Negative Urine Other Rare Renal Ur Culture Indicated? No Urine Glucose Negative COVID-19 Source SARS-CoV-2 (PCR) Influenza Type A (PCR) Influenza Type B (PCR) RSV (PCR) Add-On Test Request 05/21/23 08:03 WBC RBC Hgb Hct MCV MCH MCHC RDW Plt Count MPV Immature Gran % Neutrophils % Lymphocytes % Monocytes % Eosinophils % Basophils % Nucleated RBC % Absolute Neutrophils Absolute Lymphocytes Absolute Monocytes Absolute Eosinophils Absolute Basophils PT INR VBG pH VBG pCO2 VBG pO2 VBG HCO3 VBG Total CO2 VBG O2 Saturation VBG Base Excess VBG Lactate Sodium Potassium Chloride Carbon Dioxide Anion Gap BUN Creatinine Est GFR (CKD-EPI 2020) Glucose Calcium Total Bilirubin AST ALT Alkaline Phosphatase Troponin I C-Reactive Protein Total Protein Albumin Procalcitonin Urine Color Urine Clarity Urine pH Ur Specific [place] Urine Protein Urine Ketones Urine Blood Urine Nitrite Urine Bilirubin Urine Urobilinogen Ur Leukocyte Esterase Urine RBC Urine WBC Ur Epithelial Cells Urine Crystals Urine Bacteria Urine Casts Urine Mucus Urine Other Ur Culture Indicated? Urine Glucose COVID-19 Source SARS-CoV-2 (PCR) Influenza Type A (PCR) Influenza Type B (PCR) RSV (PCR) Add-On Test Request COMPLETED
[2023-05-21] MEDS: CEFEPIME 2 GM in Normal Saline 100 ML IVPB (10:48)
--- NOTE | 2023-05-21 10:49 | PDOC.CMIN ---
Date of service: 05/21/23 Time of Service: 10:49 Care Management Initial Assmt Initial Assessment REASON FOR HOSPITALIZATION:: sepsis PREVIOUS FUNCTIONAL STATUS/SOCIAL/FAMILY SUPPORTS:: Sunday lives in a single family home with an in-law apartment in [place] with his Gopi, their daughter Ava and [id number] Cecilia. He works as an independent, self-employed contractor. Sunday is independent at baseline and does not receive any community services. CURRENT FUNCTIONAL STATUS:: Sunday was lying in bed when CM met with him. His Gopi was present and both were dozing. Sunday stated that he is feeling pretty good. They both had questions about length of stay and test results. CM informed the provider of their queries and learned that all of the issues were discussed earlier today. VCM reinforced the information provided by the COMPLIANCE ASSISTANT. ADVANCE DIRECTIVES:: none Has patient been provided with info about the portal/API?: Yes Did the patient sign up for the portal?: No CODE STATUS:: Full Code INSURANCE COVERAGE / FINANCIAL ISSUES:: BC/BS CURRENT HOME/COMMUNITY SERVICES/EQUIPMENT:: none PRIMARY CARE PHYSICIAN:: Enrique Parikh POTENTIAL DISCHARGE NEEDS:: follow up with community providers and plan of care PATIENT/FAMILY EDUCATION NEEDS:: Review of discharge instructions, activity, limitations, follow up plan and discuss [employer] TRANSPORTATION:: via private vehicle PLAN:: Anticipate that Sunday will discharge home with no new services when medically cleared. He will follow up with his PCP and plan of care and transport with family. CM will follow and support discharge needs. PFSH All Active Problems (Updated 05/21/23 @ 06:38 by Tello De Leon) Sepsis (Acute) Thrombocytopenia (Acute) Acute non-cardiogenic pulmonary edema (Acute) Foreign body (FB) in soft tissue (Acute) partial removal 08/2021. 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 mg History of depression Hyperlipidemia Social History Smoking/Tobacco Use Status: Current every day Tobacco Type: cigarettes Smoking risk assessment performed?: Yes Alcohol Intake: never Drug use: Current Sobriety Substance use type: does not use Housing: house Do you feel safe at home: Yes Do you feel safe in your relationship?: Yes
[2023-05-21] MEDS: DOXYCYCLINE 100 MG in Normal Saline 100 ML IVPB ×2 (11:26→21:28)
--- NOTE | 2023-05-21 11:42 | NUR.NOTE ---
Flat, pale rash noted on first exam this morning. Pt notes that it may have started last night, he is not sure, but was aware f it before dayshift. It is not itchy or painful. Nursing Note:
[2023-05-21 14:14] LABS: MRSA PCR Negative (Negative)
--- NOTE | 2023-05-21 16:56 | W.PM.PROGNOT ---
Date of Service Date of service: 05/21/23 Time of Service: 08:45 Subjective Subjective Interval history since last seen: The patient reports feeling better no further chills, rigors, or night sweats. Denies headache, change in vision or body ache. Reports tolerating fluids and solid food. Denies coughing, shortness of breath, nausea, vomiting, diarrhea, constipation, or dysuria. Discussion with patient regarding continuation of antibiotics, monitoring of blood cultures at 24, 48, and 72 hours, and further blood work in the morning. Patient made aware to report chills, night sweats and fevers as well as any worsening rash. Discussed with Dr. Morrow Exam Narrative Exam Narrative: Constitutional The patient is in bed comfortable and cooperative during the interview, is present The patient is well groomed without acute distress and has average body habitus HENMT: Head is atraumatic, normocephalic, no lymphadenopathy. Facial structures with normal appearance Eyes: Well aligned, intact ROM Neck: Normal ROM, no meningeal signs Neuro:alert and oriented to self, person, place, time and situation. No neurological focal deficit Chest:Chest is symmetrical and normal appearance Resp: Normal respiratory pattern, speaks in full sentences, unlabored breathing, clear lung bilaterally Cardio: regular rhythm, S1, S2, no murmur, capillary refill<3 sec., bilateral radial and dorsalis pedis pulses are positive, palpable GI: Abdomen is not distended, soft and non tender, bowel sounds are present : Negative Costovertebral angle tenderness, no bladder distension Back/spine/Pelvis: No back tenderness, normal alignment Integumentary: New blotch-like rash, no elevated lesion noticed, no pruritus. This happened prior to the antibiotics that the patient is on now, prior too this had zosyn proximal tip of the 3rd digit of the right hand has an healed opening, the patient had punctured the skin in the past to drain, fluid collection. Will verify immunization for tetanos Extremities: strength 5/5 to bilateral lower and upper extremities Psych: RASS 0, congruent mood and normal affect. Objective Last Vital Signs Temp 36.4 C L 05/21/23 15:08 Pulse 98 H 05/21/23 15:08 Resp 18 05/21/23 15:08 BP 147/74 H 05/21/23 15:08 Pulse Ox 93 05/21/23 15:08 Laboratory Results - last 24 hr 05/21/23 05/21/23 05/21/23 00:53 00:53 00:53 WBC 10.28 RBC 5.61 Hgb 16.0 Hct 46.7 MCV 83 MCH 28.5 MCHC 34.3 RDW 14.9 H Plt Count 33 L MPV Immature Gran % 0.3 Neutrophils % 78.5 Lymphocytes % 19.0 Monocytes % 1.5 Eosinophils % 0.4 Basophils % 0.3 Nucleated RBC % 0.0 Absolute Neutrophils 8.08 H Absolute Lymphocytes 1.95 Absolute Monocytes 0.15 Absolute Eosinophils 0.04 Absolute Basophils 0.03 PT 10.4 INR 1.0 VBG pH 7.41 VBG pCO2 39 L VBG pO2 49 VBG HCO3 25 VBG Total CO2 21 L VBG O2 Saturation 85 VBG Base Excess 0 VBG Lactate 2.1 H Sodium 136 Potassium 3.6 Chloride 101 Carbon Dioxide 21.8 Anion Gap 13.2 H BUN 20 H Creatinine 0.9 Est GFR (CKD-EPI 2020) 100.86 Glucose 143 H Calcium 8.0 L Total Bilirubin 0.3 AST 17 ALT 23 Alkaline Phosphatase 114 Troponin I < 50 C-Reactive Protein 1.20 H Total Protein 7.6 Albumin 3.4 Procalcitonin Urine Color Urine Clarity Urine pH Ur Specific [place] Urine Protein Urine Ketones Urine Blood Urine Nitrite Urine Bilirubin Urine Urobilinogen Ur Leukocyte Esterase Urine RBC Urine WBC Ur Epithelial Cells Urine Crystals Urine Bacteria Urine Casts Urine Mucus Urine Other Ur Culture Indicated? Urine Glucose COVID-19 Source Cancelled Nasopharynx SARS-CoV-2 (PCR) Cancelled Negative Influenza Type A (PCR) Negative Influenza Type B (PCR) Negative RSV (PCR) Negative MRSA (TEM-PCR) Add-On Test Request 05/21/23 05/21/23 05/21/23 03:28 03:32 07:25 WBC RBC Hgb Hct MCV MCH MCHC RDW Plt Count MPV Immature Gran % Neutrophils % Lymphocytes % Monocytes % Eosinophils % Basophils % Nucleated RBC % Absolute Neutrophils Absolute Lymphocytes Absolute Monocytes Absolute Eosinophils Absolute Basophils PT INR VBG pH VBG pCO2 VBG pO2 VBG HCO3 VBG Total CO2 VBG O2 Saturation VBG Base Excess VBG Lactate 1.1 0.9 Sodium Potassium Chloride Carbon Dioxide Anion Gap BUN Creatinine Est GFR (CKD-EPI 2020) Glucose Calcium Total Bilirubin AST ALT Alkaline Phosphatase Troponin I < 50 C-Reactive Protein 1.77 H Total Protein Albumin Procalcitonin 2.2 Urine Color Yellow Urine Clarity Clear Urine pH 6.0 Ur Specific [place] 1.010 Urine Protein Negative Urine Ketones Negative Urine Blood Trace-intact H Urine Nitrite Negative Urine Bilirubin Negative Urine Urobilinogen 0.2 Ur Leukocyte Esterase Negative Urine RBC 3-5 H Urine WBC Negative Ur Epithelial Cells Negative Urine Crystals Negative Urine Bacteria Rare Urine Casts Negative Urine Mucus Negative Urine Other Rare Renal Ur Culture Indicated? No Urine Glucose Negative COVID-19 Source SARS-CoV-2 (PCR) Influenza Type A (PCR) Influenza Type B (PCR) RSV (PCR) MRSA (TEM-PCR) Add-On Test Request 05/21/23 05/21/23 08:03 12:35 WBC RBC Hgb Hct MCV MCH MCHC RDW Plt Count MPV Immature Gran % Neutrophils % Lymphocytes % Monocytes % Eosinophils % Basophils % Nucleated RBC % Absolute Neutrophils Absolute Lymphocytes Absolute Monocytes Absolute Eosinophils Absolute Basophils PT INR VBG pH VBG pCO2 VBG pO2 VBG HCO3 VBG Total CO2 VBG O2 Saturation VBG Base Excess VBG Lactate Sodium Potassium Chloride Carbon Dioxide Anion Gap BUN Creatinine Est GFR (CKD-EPI 2020) Glucose Calcium Total Bilirubin AST ALT Alkaline Phosphatase Troponin I C-Reactive Protein Total Protein Albumin Procalcitonin Urine Color Urine Clarity Urine pH Ur Specific [place] Urine Protein Urine Ketones Urine Blood Urine Nitrite Urine Bilirubin Urine Urobilinogen Ur Leukocyte Esterase Urine RBC Urine WBC Ur Epithelial Cells Urine Crystals Urine Bacteria Urine Casts Urine Mucus Urine Other Ur Culture Indicated? Urine Glucose COVID-19 Source SARS-CoV-2 (PCR) Influenza Type A (PCR) Influenza Type B (PCR) RSV (PCR) MRSA (TEM-PCR) Negative Add-On Test Request COMPLETED Time Spent with Patient Time Spent with Patient: 35-49 minutes Time was spent: preparing to see the patient(eg.review tests), obtaining and/or reviewing separately otained hiistory, ordering medications,tests, procedures, referring, communicating with other health post acute care registered nurse, counseling the patient and care coordination
--- NOTE | 2023-05-21 17:43 | NUR.NOTE ---
Approx 5:30pm this nurse saw pt in hallway with his jacket on. Asked where he was going, said he was just covering up his morgan and was going to walk around the unit. He then got on the elevator. By the time nursing caught up with him he was almost to the parking lot and smoking a cigarette. Asked him to come back and he did. Explained that it is an infection risk for him to leave the unit with PIVs and he also has a nicotine patch on, which makes it unwise to smoke while that is on his body. Pt apologized, but did not seem to mean it, although he did say that it would not happen again. Advised pt that security has been notified. He was defensive with this information, so nursing assured him that it is protocol and for safety reasons. Nursing Note:
[2023-05-21] MEDS: VANCOMYCIN/WATER (PEG) 1.25 GM/250 ML BAG IV (19:58)
[2023-05-21] MEDS: Venlafaxine 75 MG CAPCR PO (19:58)
[2023-05-21] MEDS: Venlafaxine 150 MG CAPCR PO (19:59)
[2023-05-22] MEDS: CEFEPIME 2 GM in Normal Saline 100 ML IVPB ×3 (02:07→17:45)
[2023-05-22 04:00] VITALS: BP 146/72; PULSE 78; RESP 18; TEMP 36.9; O2SAT 98
[2023-05-22 07:00] LABS: Abs Immature Grans 0.05 10^3/uL (0.0-0.06); Absolute Basophil Count 0.03 10^3/uL (0.0-0.2); Absolute Eosinophil Count 0.11 10^3/uL (0.0-0.7); Absolute Monocyte Count 0.83 10^3/uL (0.1-0.8); Basophils % 0.3; HGB 13.9 g/dL (13.5-17.5); Immature Grans % 0.5; Lymphocytes % 22.4; MCH 28.2 pg (27.0-33.0); MCHC 33.9 % (32.0-36.0); MCV 83 fL (80-95); Monocytes % 7.5; Neutrophils % 68.3; RBC 4.93 10^6/uL (4.36-5.78); RDW 15.2 % (11.8-14.1); RDW-SD 46.3 fL; WBC 11.05 10^3/uL (4.4-10.8)
[2023-05-22 07:07] LABS: Prothrombin Time 10.4 sec (9.1-11.1)
[2023-05-22 07:19] LABS: ALT 33 U/L (16-63); AST 20 U/L (15-37); Alkaline Phosphatase 79 U/L (46-116); Anion Gap 7.7 mmol/L (3-11); BUN 15 mg/dL (7-18); Bilirubin, Direct 0.1 mg/dL (0.0-0.2); Bilirubin, Total 0.4 mg/dL (0.2-1.0); CO2 26.3 mmol/L (21.0-32.0); CREATININE 0.8 mg/dL (0.70-1.30); Calcium 8.3 mg/dL (8.5-10.1); Chloride 106 mmol/L (98-107); Estimated GFR 104.51 (mL/min/1.73m2); Glucose 118 mg/dL (74-106); Potassium 3.6 mmol/L (3.5-5.1); Sodium 140 mmol/L (136-145); Total Protein 6.9 g/dL (6.4-8.2)
[2023-05-22 07:22] LABS: Absolute Lymphocyte Count 2.48 10^3/uL (1.2-3.4); Absolute Neutrophil Count 7.55 10^3/uL (1.2-6.7)
[2023-05-22 07:29] VITALS: BP 154/77; PULSE 82; RESP 16; TEMP 36.4; O2SAT 96
[2023-05-22 07:34] LABS: Diff Comment Diff Reviewed; Platelet Count 63 10^3/uL (130-400); RBC Morphology Normal
[2023-05-22 07:47] LABS: Lab Add On Test DONE
[2023-05-22] MEDS: Nicotine 14 MG/24 HR PATCH TD (07:47)
[2023-05-22] MEDS: Normal Saline Flush 10 ML SYR IVP ×3 (07:48→23:39)
[2023-05-22] MEDS: VANCOMYCIN/WATER (PEG) 1.25 GM/250 ML BAG IV (07:48)
[2023-05-22 08:25] LABS: Folate 8.4 ng/mL (8.6-20.0); Vitamin B12 256 pg/mL (193-986)
--- NOTE | 2023-05-22 09:18 | W.PM.PROGNOT ---
Date of Service Date of service: 05/22/23 Time of Service: 09:18 Assessment and Plan Assessment and plan (1) Sepsis: Start date: 05/21/23 Status: Acute Assessment and plan: Will continue Doxycycline and cefepime pending further blood culture results Discontinue Vancomycin - negative MRSA PCR WBC now 11.05 from 10.28 No growth in blood cultures X24 hours Qualifiers: Sepsis type: sepsis due to unspecified organism Sepsis acute organ dysfunction status: with acute organ dysfunction Severe sepsis acute organ dysfunction type: acute respiratory failure Acute respiratory failure type: with hypoxia Severe sepsis shock status: without septic shock Qualified Code(s): A41.9 - Sepsis, unspecified organism; R65.20 - Severe sepsis without septic shock; J96.01 - Acute respiratory failure with hypoxia (2) Acute non-cardiogenic pulmonary edema: Start date: 05/21/23 Status: Acute Assessment and plan: No oxygen requirement Considering echocardiography if changes occur Tele was stable x24 hours and discontinued (3) Thrombocytopenia: Start date: 05/21/23 Status: Acute Assessment and plan: No previous thrombocytopenia, this sudden drop in platelets level to 33 000 could possibly be related to an acute process or infectious disease. Platelets level is 63 today, will continue to monitor Continue mechanical DVT prophylaxis (4) Depression: Assessment and plan: Continue Venlafaxine CR Qualifiers: Depression Type: other depression Qualified Code(s): F32.89 - Other specified depressive episodes (5) IVANNA (obstructive sleep apnea): Status: Chronic Assessment and plan: diagnosed as severe but not treated outpatient Will continue to monitor (6) Splenomegaly: Status: Acute Assessment and plan: Will refer to hematology (7) Tobacco abuse: Status: Acute Assessment and plan: Nicotine patch initiated on 05/21, patient still had cravings Nicotine patch dose increased (8) Folic acid deficiency: Status: Acute Assessment and plan: folate 8.4, replacement provided (9) Discharge planning issues: Status: Acute Assessment and plan: No needs for D/C home. CM will f/u if need arises Will need f/u with GI and hematology Subjective Subjective Patient reports: no new complaints, feels better, tolerating liquids well, tolerating a regular diet, voiding w/o difficulty, flatus and bowel movement; denies diarrhea, blood in stool, vomiting, shortness of breath or fever Exam Narrative Exam Narrative: Constitutional The patient is in bed comfortable The patient is wwithout acute distress HENMT: Head isnormocephalic, and facial structures with normal appearance Eyes: Well aligned, intact ROM Neck: Normal ROM Neuro:alert and oriented X4 , no neurological focal deficit Chest:Chest is symmetrical Resp: Normal respiratory pattern,unlabored breathing, clear lung bilaterally diminished bases Cardio: regular rhythm, S1, S2, no murmur, bilateral radial and dorsalis pedis pulses are positive, tele: SR HR 77/ discontinued GI: Abdomen is not distended, soft and non tender, bowel sounds are present : Negative Costovertebral angle tenderness, no bladder distension Back/spine/Pelvis: No back tenderness, normal alignment Integumentary: New blotch-like rash seen yesterday, cleared.Most likley occured after Zosyn and patient is aware proximal tip of the 3rd digit of the right hand has an healed opening, the patient had punctured the skin in the past to drain, fluid collection. Patient stated being up to date with Tetanus immunization Extremities: strength 5/5 to bilateral lower and upper extremities Psych: RASS 0, congruent mood and normal affect. Objective Last Vital Signs Temp 36.4 C L 05/22/23 07:29 Pulse 82 05/22/23 07:29 Resp 16 05/22/23 07:29 BP 154/77 H 05/22/23 07:29 Pulse Ox 96 05/22/23 07:29 Laboratory Results - last 24 hr 05/21/23 05/22/23 05/22/23 12:35 06:39 06:39 WBC 11.05 H RBC 4.93 Hgb 13.9 D Hct 41.0 MCV 83 MCH 28.2 MCHC 33.9 RDW 15.2 H Plt Count 63 L D MPV 11.0 Immature Gran % 0.5 Neutrophils % 68.3 Lymphocytes % 22.4 Monocytes % 7.5 Eosinophils % 1.0 Basophils % 0.3 Nucleated RBC % 0.0 Absolute Neutrophils 7.55 H Absolute Lymphocytes 2.48 Absolute Monocytes 0.83 H Absolute Eosinophils 0.11 Absolute Basophils 0.03 RBC Morphology Normal PT 10.4 INR 1.0 Sodium 140 Potassium 3.6 Chloride 106 Carbon Dioxide 26.3 Anion Gap 7.7 BUN 15 Creatinine 0.8 Est GFR (CKD-EPI 2020) 104.51 Glucose 118 H Calcium 8.3 L Magnesium 2.0 Total Bilirubin 0.4 Cancelled Conjugated Bilirubin 0.1 AST ALT Alkaline Phosphatase C-Reactive Protein Total Protein Albumin Vitamin B12 Folate MRSA (TEM-PCR) Negative Add-On Test Request 05/22/23 05/22/23 05/22/23 06:39 06:39 06:39 WBC RBC Hgb Hct MCV MCH MCHC RDW Plt Count MPV Immature Gran % Neutrophils % Lymphocytes % Monocytes % Eosinophils % Basophils % Nucleated RBC % Absolute Neutrophils Absolute Lymphocytes Absolute Monocytes Absolute Eosinophils Absolute Basophils RBC Morphology PT INR Sodium Potassium Chloride Carbon Dioxide Anion Gap BUN Creatinine Est GFR (CKD-EPI 2020) Glucose Calcium Magnesium Total Bilirubin Conjugated Bilirubin Cancelled AST 20 Cancelled ALT 33 Cancelled Alkaline Phosphatase 79 C-Reactive Protein Total Protein Albumin Vitamin B12 Folate MRSA (TEM-PCR) Add-On Test Request 05/22/23 05/22/23 05/22/23 06:39 06:39 06:39 WBC RBC Hgb Hct MCV MCH MCHC RDW Plt Count MPV Immature Gran % Neutrophils % Lymphocytes % Monocytes % Eosinophils % Basophils % Nucleated RBC % Absolute Neutrophils Absolute Lymphocytes Absolute Monocytes Absolute Eosinophils Absolute Basophils RBC Morphology PT INR Sodium Potassium Chloride Carbon Dioxide Anion Gap BUN Creatinine Est GFR (CKDEPI 2020) Glucose Calcium Magnesium Total Bilirubin Conjugated Bilirubin AST ALT Alkaline Phosphatase Cancelled C-Reactive Protein 2.20 H Total Protein 6.9 Cancelled Albumin 3.0 L Cancelled Vitamin B12 256 Folate 8.4 L MRSA (TEM-PCR) Add-On Test Request 05/22/23 05/22/23 07:46 Unknown WBC RBC Hgb Hct MCV MCH MCHC RDW Plt Count MPV Immature Gran % Neutrophils % Lymphocytes % Monocytes % Eosinophils % Basophils % Nucleated RBC % Absolute Neutrophils Absolute Lymphocytes Absolute Monocytes Absolute Eosinophils Absolute Basophils RBC Morphology PT INR Sodium Potassium Chloride Carbon Dioxide Anion Gap BUN Creatinine Est GFR (CKD-EPI 2020) Glucose Calcium Magnesium Total Bilirubin Conjugated Bilirubin AST ALT Alkaline Phosphatase C-Reactive Protein Total Protein Albumin Vitamin B12 Folate MRSA (TEM-PCR) Add-On Test Request DONE Cancelled Time Spent with Patient Time Spent with Patient: >50 minutes Time was spent: preparing to see the patient(eg.review tests), obtaining and/or reviewing separately otained hiistory, ordering medications,tests, procedures, referring, communicating with other health home health care worker, indepentently interpreting results, counseling the patient and care coordination
[2023-05-22] MEDS: Folic Acid 1 MG TAB 5 MG PO (10:27)
[2023-05-22 11:31] VITALS: BP 150/84; PULSE 81; RESP 16; TEMP 36.6; O2SAT 95
[2023-05-22] MEDS: DOXYCYCLINE 100 MG in Normal Saline 100 ML IVPB ×2 (12:13→23:38)
[2023-05-22 15:26] VITALS: BP 166/83; PULSE 85; RESP 18; TEMP 36.5; O2SAT 97
[2023-05-22 19:37] VITALS: BP 137/83; PULSE 82; RESP 18; TEMP 36.1; O2SAT 96
[2023-05-22] MEDS: Venlafaxine 150 MG CAPCR PO (20:16)
[2023-05-22] MEDS: Venlafaxine 75 MG CAPCR PO (20:17)
[2023-05-22 23:39] VITALS: BP 145/72; PULSE 71; RESP 16; TEMP 36.8; O2SAT 95
[2023-05-23] MEDS: CEFEPIME 2 GM in Normal Saline 100 ML IVPB ×2 (02:07→09:58)
[2023-05-23 07:06] LABS: HCT 42.4 % (40.0-50.0); HGB 14.2 g/dL (13.5-17.5); MCHC 33.5 % (32.0-36.0); MCV 84 fL (80-95); Platelet Count 115 10^3/uL (130-400); RBC 5.08 10^6/uL (4.36-5.78); RDW-SD 46.1 fL; WBC 8.26 10^3/uL (4.4-10.8)
[2023-05-23 07:17] LABS: Anion Gap 7.9 mmol/L (3-11); BUN 13 mg/dL (7-18); CO2 27.1 mmol/L (21.0-32.0); CREATININE 0.8 mg/dL (0.70-1.30); Calcium 8.5 mg/dL (8.5-10.1); Chloride 106 mmol/L (98-107); Estimated GFR 104.51 (mL/min/1.73m2); Glucose 101 mg/dL (74-106); Magnesium 1.9 mg/dL (1.8-2.4); Sodium 141 mmol/L (136-145)
[2023-05-23 07:22] LABS: Absolute Monocyte Count 0.25 10^3/uL (0.1-0.8); Absolute Neutrophil Count 4.71 10^3/uL (1.2-6.7); Atypical Lymphocytes % 9
[2023-05-23 07:23] LABS: Diff Comment Manual Differential; RBC Morphology Normal
[2023-05-23 07:26] VITALS: BP 130/87; PULSE 82; RESP 14; TEMP 35.9; O2SAT 97
[2023-05-23] MEDS: Cyanocobalamin 500 MCG TAB 1000 MCG PO (07:59)
[2023-05-23] MEDS: Nicotine 21 MG/24 HR PATCH TD (07:59)
[2023-05-23] MEDS: Folic Acid 1 MG TAB PO (07:59)
[2023-05-23] MEDS: Normal Saline Flush 10 ML SYR IVP ×2 (08:01→09:58)
--- NOTE | 2023-05-23 08:54 | DSE_ITS ---
Date of service: 05/23/23 Time of Service: 10:32 DS: Diagnosis Discharge Diagnosis (1) Sepsis: Status: Acute (2) Acute non-cardiogenic pulmonary edema: Status: Acute (3) Thrombocytopenia: Status: Acute (4) Depression: (5) IVANNA (obstructive sleep apnea): Status: Chronic (6) Splenomegaly: Status: Acute (7) Tobacco abuse: Status: Acute (8) Folic acid deficiency: Status: Acute (9) Discharge planning issues: Status: Acute Discharge Plan Disposition Patient Disposition: Home Condition: Improving Discharge Details Reason For Visit: Sepsis Admit Date/Time: 05/21/23 05:22 Admit Provider: Tello De Leon Attending Provider: Tello De Leon Primary Care Provider: Enrique Parikh [facility] Hospital Course: This 57-year-old male patient with a past medical history of tobacco abuse, 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 The patient had refused EMS transfer.The patient reported recent repeated infections with intermittent pus drainage of his right middle finger which is status post injury about 12 years ago from a table saw. On arrival to the ED the patient was febrile with symptoms of early shock syndrome without hypotension and the patient received treatment as per by shock protocol with cande-Medrol one-time dose.The patient received one dose of pipercillin-tazobactam in the ED. The patient received cefepime which also covers thick born illnesses and vancomycin IV to complete the coverage for possible bacteremia from his recurrent hand infection. The patient was slightly hypoxic without shortness of breath and initially required oxygen supplementation. Remarkable labs in the ED was a lactic acid of 2.1, platelets 33, procalcitonin 2.2, BUN 20 with Cr 0.9.The patient received 3 L of NS in the ED and the repeated lactate was 1.1. The chest XR showed no acute findings as per report but lung guzman appeared congested, non cardiogenic.The Ct of the abdomen and pelvis showed hepatosplenomegaly, and a small liver cyst. The patient denied any rash or bruising recently and had no abdominal discomfort or chest pain; reported feeling persistently generally tired .The patient reported a history of untreated severe sleep apnea, previous opioid and alcohol abuse and but no IV drug use in the past. The patient improved and did no longer require oxygen. The hospitalist admitted the patient for evaluation and management of sepsis, early noncardiogenic shock syndrome, thrombocytopenia. During his stay the patient's telemetry reading showed a sinusal rhythm with heart rate of 77 to 103. Doxycycline was added to the antibiotic regimen to cover anaplasmosis with other possible thick-born illnesses.The patient reported been in the [facility] in [place] in March. The patient reported a new flat appearing, non-pruritic diffused rash appearing after the one-time Zosyn infusion which subsequently disappeared. The platelet count increased to 115, WBC went to 11.05 then down to 8.26. Blood cultures showed not growth in 48 hours and thick-born illness panel is pending. The patient will have to follow- up with his primary care provider Dr. Enrique Parikh from [facility] for follow-up regarding the hepatosplenomegaly and liver cyst on his CT, as well as the result of his pending hick-born illness panel results and his treatment. The patient is discharge home with oral cefpodoxime twice a day for five more doses, doxycycline twice a day for 25 doses to complete a 2 week-course. Additionally, Bio-k plus daily was added to the regimen. Home Meds and New Rx's Prescriptions: New cefpodoxime 200 mg tablet 200 mg PO Q12H Qty: 5 0RF Rx Instructions: must administer with a meal/food BiomePRO 50 billion cell capsule,delayed release(DR/EC) 1 cap PO DAILY Qty: 14 0RF doxycycline hyclate 100 mg capsule 100 mg PO BID Qty: 25 0RF Continued venlafaxine [Effexor XR] 150 mg capsule,extended release 24hr 150 mg PO QPM ibuprofen 200 mg capsule 800 mg PO Q6H PRN venlafaxine [Effexor XR] 75 mg capsule,extended release 24hr 75 mg PO QPM Discharge Instructions Stand Alone Forms: Nursing Discharge Form Referrals: Enrique Parikh [Primary Care Provider] - (call Wednesday and make an appointment in the next 1-2 weeks ) Activity:: Activity as Tolerated Equipment/Supplies:: No Equipment Needed Diet:: As Tolerated DS: Summary Time Spent with Patient providing and/or coordinating discharge services: Greater than 30 minutes Status at Discharge Functional status at discharge: independent ambulation Overall status at discharge: patient is progressing back to baseline Mental Status: mental status grossly normal Speech and Movement: speech and movement normal Mood: congruent mood Affect: normal affect Exam Narrative Exam Narrative: Constitutional The patient is sitting in chair comfortable and cooperative during the interview, is present. The patient is without acute distress. HENMT: Head is normocephalic, and facial structures with normal appearance Eyes: Well aligned, intact ROM Neck: Normal ROM, no meningeal signs Neuro:alert and oriented to self, person, place,time and situation. No neurological focal deficit detected. Chest:Chest is symmetrical and normal appearance Resp: Normal respiratory pattern, speaks in full sentences, unlabored breathing, clear lung bilaterally. Cardio: regular rhythm, S1, S2, no murmur GI: Abdomen is not distended, soft and non tender, bowel sounds are present : Negative Costovertebral angle tenderness Back/spine/Pelvis: No back tenderness, normal alignment Integumentary: No skin lesions or rash Extremities: strength 5/5 to bilateral lower and upper extremities Psych: RASS 0, congruent mood and normal affect. Psych Mental Status: mental status grossly normal Speech and Movement: speech and movement normal Mood: congruent mood Affect: normal affect DS: Data Vitals/I&O Vitals and I&O: Vital Signs Temperature 35.9 C L 05/23/23 07:26 Temperature Source Tympanic 05/23/23 07:26 Pulse 82 05/23/23 07:26 Pulse Rhythm Regular 05/22/23 21:56 Pulse 89 05/21/23 05:50 Respiratory Rate 14 05/23/23 07:26 Respiratory Effort Normal, Non-Labored 05/22/23 21:56 Respiratory Depth Normal 05/22/23 21:56 Respiratory Pattern Normal 05/22/23 21:56 Blood Pressure 130/87 05/23/23 07:26 Blood Pressure Mean 88 05/21/23 04:01 Blood Pressure Position Sitting 05/21/23 00:25 Pulse Oximetry 97 05/23/23 07:26 Oxygen Delivery Method Room Air 05/23/23 07:26 Oxygen Flow Rate 0 05/23/23 07:26 Pain Level 0 05/23/23 07:26 Intake & Output 05/22/23 05/22/23 05/23/23 11:59 23:59 11:59 Intake Total 460 / 660 200 / 660 200 / 200 Balance 460 / 660 200 / 660 200 / 200 Weight 100.8 kg 97.8 kg Intake: IV 460 / 660 200 / 660 200 / 200 Other: Urine Color Yellow Yellow Urine Appearance Clear Clear Urine Odor None None Comment patient up independently to the bathroom Voiding Methods Toilet Toilet Data Completed and Pending Labs on day of discharge: Labs from last 24 hours 05/23/23 06:18 WBC 8.26 RBC 5.08 Hgb 14.2 Hct 42.4 MCV 84 MCH 28.0 MCHC 33.5 RDW 15.0 H Plt Count 115 L D MPV 12.0 H Immature Gran % 0.0 Neutrophils % 57.0 Lymphocytes % 31.0 Atypical Lymphs % 9 Monocytes % 3.0 Eosinophils % 0.0 Basophils % 0.0 Nucleated RBC % 0.0 Absolute Neutrophils 4.71 Absolute Lymphocytes 3.30 Absolute Monocytes 0.25 Absolute Eosinophils 0.00 Absolute Basophils 0.00 RBC Morphology Normal Sodium 141 Potassium 4.0 Chloride 106 Carbon Dioxide 27.1 Anion Gap 7.9 BUN 13 Creatinine 0.8 Est GFR (CKD-EPI 2020) 104.51 Glucose 101 Calcium 8.5 Magnesium 1.9 Preliminary micro results at discharge 05/21/23 00:53 Blood Culture - Preliminary Blood NO GROWTH 48 HOURS Blood Culture - Preliminary NO GROWTH 48 HOURS 05/21/23 00:55 Blood Culture - Preliminary Blood NO GROWTH 48 HOURS PFSH All Active Problems (Updated 05/22/23 @ 16:45 by Ksenia Humphrey APRN) Discharge planning issues (Acute) Folic acid deficiency (Acute) Tobacco abuse (Acute) Splenomegaly (Acute) Sepsis (Acute) Thrombocytopenia (Acute) Acute non-cardiogenic pulmonary edema (Acute) Foreign body (FB) in soft tissue (Acute) partial removal 08/2021. 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 mg History of depression Hyperlipidemia Social History (Reviewed 05/21/23 @ 06:25 by Tello Mcdaniel Smoking/Tobacco Use Status: Current every day Tobacco Type: cigarettes Smoking risk assessment performed?: Yes Alcohol Intake: never Drug use: Current Sobriety Substance use type: does not use Housing: house Do you feel safe at home: Yes Do you feel safe in your relationship?: Yes Time Spent with Patient Time Spent with Patient: >85 minutes Time was spent: preparing to see the patient(eg.review tests), ordering medications,tests, procedures, referring, communicating with other health rn progressive care unit, indepentently interpreting results, counseling the patient and care coordination
[2023-05-23] MEDS: Doxycycline Hyclate 100 MG CAP PO (11:09)
[2023-05-23 11:17] VITALS: BP 164/88; PULSE 86; RESP 14; TEMP 35.7; O2SAT 96
--- NOTE | 2023-05-23 11:33 | PDOC.CMDIS ---
Date of service: 05/23/23 Time of Service: 11:34 LACE Index Scoring Tool Questions: Length of Stay (in days): 2 Was the patient admitted via the E.D.?: Yes E.D. Visits: 1 Answers: Total Score: 6 Risk of Readmission: Low Risk Care Management Discharge Plan Reason for Hospitalization: sepsis Discharge Plan: Sunday will discharge home with no new services. He will follow up with his PCP and plan of care and transport with family. Patient/Family Education Needs: Review of discharge instructions, activity, limitations, follow up plan and discuss Ask Me Three
[2023-05-25 11:03] LABS: Lyme Ab w Rflx to Lyme Confirm Negative (Negative)
[2023-05-25 14:06] LABS: Anaplasma phagocytophilum Negative (Negative); B. miyamotoi PCR Negative (Negative); Babesia divergens/MO-1 Negative (Negative); Babesia duncani Negative (Negative); Babesia microti Negative (Negative); Ehrlichia chaffeensis Negative (Negative); Ehrlichia ewingii/canis Negative (Negative); Ehrlichia muris eauclairensis Negative (Negative)
== END 2023-05-23 12:18 | disposition home or self-care (01) | DRG 871 ==
LOC: ER 05:32 → MS 06:08
PROVIDERS: Internal Medicine; Nurse Practitioner Acute Care; Admitting Provider Family Medicine; Emergency Provider Emergency Medicine Emergency Medical Services; PCP Internal Medicine; Visit Provider Family Medicine
DX: A41.9 Sepsis, unspecified organism (principal); J81.0 Acute pulmonary edema; E87.20 Acidosis, unspecified; R65.20 Severe sepsis without septic shock; D69.6 Thrombocytopenia, unspecified; F32.89 Other specified depressive episodes; G47.33 Obstructive sleep apnea (adult) (pediatric); E66.3 Overweight; F11.11 Opioid abuse, in remission; F17.210 Nicotine dependence, cigarettes, uncomplicated; E78.5 Hyperlipidemia, unspecified; R09.02 Hypoxemia; E53.8 Deficiency of other specified B group vitamins; E86.1 Hypovolemia; L08.89 Other specified local infections of the skin and subcutaneous tissue
CPT/HCPCS: 00123; 36415; 76604; 76705; 76775; 80048; 80053; 80076; 82805; 84145; 85027; 87040; 87635; 87637; 87641; 87798; 93005; 93308; 96365; 96366; 96375; 99291; 71045; 73140; 74177; 81003; 81015; 82607; 82746; 83605; 83735; 84484; 85025; 85610; 86140; 86618; 93010; 99223; 99233; 99239; J2543; J2930; J3490

== ENCOUNTER 2024-02-02 13:30 | Emergency (ER) | payer OTHER, SELFPAY ==
[2024-02-02 13:46] VITALS: BP 158/85; PULSE 89; RESP 16; TEMP 36.6; O2SAT 96
[2024-02-02 15:07] LABS: Bilirubin Small (Negative); Blood Negative (Negative); Clarity Clear (Clear); Glucose Negative (Negative); Ketones Trace mg/dL (Negative); Leukocyte Esterase Negative (Negative); Nitrite Negative (Negative); Specific Gravity >= 1.030 (1.005-1.025); Urobilinogen 0.2 mg/dL (Up to 0.2)
[2024-02-02] MEDS: Acetaminophen 500 MG TAB 1000 MG PO (15:20)
[2024-02-02 15:28] LABS: Abs Immature Grans 0.08 10^3/uL (0.0-0.06); Absolute Lymphocyte Count 2.36 10^3/uL (1.2-3.4); Absolute Monocyte Count 0.89 10^3/uL (0.1-0.8); Basophils % 0.3 %; Eosinophils % 0.5 %; HCT 49.3 % (40.0-50.0); HGB 16.9 g/dL (13.5-17.5); Immature Grans % 0.5 %; Lymphocytes % 15.9 %; MCH 28.5 pg (27.0-33.0); MCHC 34.3 % (32.0-36.0); MCV 83 fL (80-95); Neutrophils % 76.8 %; Platelet Count 250 10^3/uL (130-400); RBC 5.93 10^6/uL (4.36-5.78); RDW 13.9 % (11.8-14.1); WBC 14.82 10^3/uL (4.4-10.8)
[2024-02-02 15:29] LABS: Absolute Basophil Count 0.04 10^3/uL (0.0-0.2); Absolute Eosinophil Count 0.07 10^3/uL (0.0-0.7); Absolute Neutrophil Count 11.38 10^3/uL (1.2-6.7)
[2024-02-02 15:43] LABS: Albumin 3.8 g/dL (3.4-5.0); Alkaline Phosphatase 127 U/L (46-116); Anion Gap 10.7 mmol/L (3-11); BUN 14 mg/dL (7-18); Bilirubin, Total 0.28 mg/dL (0.2-1.0); CO2 22.3 mmol/L (21.0-32.0); CREATININE 0.8 mg/dL (0.70-1.30); Calcium 9.1 mg/dL (8.5-10.1); Chloride 103 mmol/L (98-107); Estimated GFR 103.87 (mL/min/1.73m2); Glucose 122 mg/dL (74-106); Potassium 4.4 mmol/L (3.5-5.1); Sodium 136 mmol/L (136-145); Total Protein 8.4 g/dL (6.4-8.2)
[2024-02-02] MEDS: Omnipaque 350 MG/ML 100 ML BTL IJ (15:52)
[2024-02-02] MEDS: Normal Saline - Diluent 50 ML VIAL IJ (15:54)
[2024-02-02 16:04] LABS: ALT 30 U/L (16-63)
--- NOTE | 2024-02-02 16:08 | DI.CT_ITS ---
Exam(s) CT CHEST/ABD/PEL W EXAM: CT CHEST/ABD/PEL W CLINICAL HISTORY: fell 14ft onto ladder, right flank/chest pain. TECHNIQUE: Imaging Protocol: Axial computed tomography images with coronal and sagittal reformatted images were created and reviewed CONTRAST MATERIAL: Intravenous: Omnipaque 350 Contrast volume:100 ml Oral: None COMPARISON: CT CT ABDOMEN PELVIS W from 05/21/2023 FINDINGS: CHEST: LUNGS: There are mild increased markings in both lung bases but no evidence of prominent infiltrate o r prominent lung contusion. No pleural effusions. No pneumothorax. No significant focal findings i n the trachea and mainstem bronchi. MEDIASTINUM: No evidence of sternal fracture nor mediastinal hematoma. Visualized thyroid unremarkab le.No incidental hilar nor mediastinal adenopathy. No incidental axillary adenopathy. No supraclavi cular adenopathy. CARDIAC: Heart size is normal. There is no pericardial effusion.Thoracic aorta appears intact-unrema rkable. OSSEOUS: No significant osseous lesions.No fractures.. ABDOMEN: There is no ascites. LIVER: No evidence of liver laceration nor subcapsular hematoma. There is a benign cyst in the left hepatic lobe which measures 3.1 x 2 cm, unchanged from 05/21/2023. A smaller unchanged 8 mm cyst is again noted posteriorly in the right hepatic lobe. No new focal liver findings. There are no dilate d intrahepatic ducts. GALLBLADDER/BILIARY: No obvious gallbladder pathology. CBD is not dilated. PANCREAS: There are multiple parenchymal calcifications noted in the uncinate process of the pancreas , similar to previous. No obvious mass in the pancreas nor dilated pancreatic duct. A few other tin y parenchymal calcifications are noted at level the neck and body of the pancreas, similar to previou s. SPLEEN: There is splenomegaly again noted. The cephalocaudal measurement of the spleen is 15.4 cm wh ich is similar to previous. No evidence of splenic laceration or subcapsular hematoma. There are no splenic lesions evident the splenic and portal veins are patent. Splenic and portal veins are paten t. ADRENALS: There are no significant adrenal masses. KIDNEYS: No calculi nor hydronephrosis. No solid renal masses. No cysts evident. ABDOMINAL AORTA: There is some atherosclerotic involvement of the infrarenal abdominal aorta with mil d fusiform dilatation with maximum diameter 2.4 cm, unchanged from prior CT of April 2023. There is no aneurysmal dilatation of the iliac arteries. LYMPH NODES: There is no retroperitoneal nor paraaortic adenopathy. ABDOMINAL WALL: Small fat only containing umbilical hernia again noted GI: There is no evidence of bowel obstruction.No evidence of bowel wall hematoma nor mesenteric hemat ender. . PELVIS: LYMPH NODES: There is no intrapelvic nor inguinal adenopathy. GI: No evidence of appendicitis.No evidence of sigmoid diverticulitis. URINARY BLADDER: No calculi nor masses evident no intraluminal clots. REPRODUCTIVE: Prostate size is normal. OSSEOUS: No acute fractures. Multilevel Schmorl's nodes. Disc space narrowing L4-5 and L5-S1. No l isthesis. No significant osseous lesions. IMPRESSION: 1. No significant acute trauma sequelae in the chest, abdomen, and pelvis. 2. Splenomegaly again noted, unchanged from April 2023. No splenic lesions evident. Splenic and portal veins are patent. 3. Again noted is a benign-appearing cyst in the left hepatic lobe and multiple calcifications in the uncinate process of the pancreatic head, also unchanged Called by myself to the ER physician 02/02/2024 4:35 p.m. RADIATION DOSE DELIVERED: 1,325.82mGy.cm Total DLP DATA REPOSITORY: All CT scans at this facility are submitted to the National Radiology Data Registry (NRDR) Dose Index Registry (DIR) with the [employer] (A[employer]). RADIATION OPTIMIZATION: All CT scans at this facility use at least one of these dose optimization te chniques: automated exposure control; mA and/or kV adjustment per patient size (includes targeted exa ms where dose is matched to clinical indication); or iterative reconstruction.
--- NOTE | 2024-02-02 16:09 | DI.CT_ITS ---
Exam(s) CT HEAD CERVICAL SPINE WO EXAM: CT HEAD CERVICAL SPINE WO CLINICAL HISTORY: fell, 14 ft hit head, no LOC. TECHNIQUE: Imaging Protocol: Axial computed tomography images with coronal and sagittal reformatted images were created and reviewed COMPARISON: No exams were available for comparison FINDINGS: BRAIN: There are no skull fractures nor fluid in the visualized paranasal sinuses. There is no evidence of intracranial hemorrhage, mass effect, or shift of midline structures. There are no extra-axial fluid collections. The ventricles are not enlarged or shifted and there is no blo od within the ventricular system nor within the basal cisterns. CERVICAL SPINE: There is no evidence of fracture nor listhesis. No significant prevertebral soft tissue swelling. C1 arch and odontoid process appear intact. There is chronic disc space narrowing at C 5-6 and C6-7 levels. There also small bilateral Luschka j oint osteophytes at these 2 levels. Calcification in the posterior longitudinal ligament noted at C5 -6. Calcification in the supraspinous ligament noted at C5. There are degenerative changes in the r ight-side facet joint at the C3-4 level. There is no significant facet joint malalignment. No significant osseous lesions evident. IMPRESSION: No acute intracranial findings on this noninfused CT scan of the brain. No evidence of cervical spine fracture, malalignment, nor acute compromise of the cervical spinal can al. Chronic degenerative disc disease C5-6 and C6-7 levels. RADIATION DOSE DELIVERED: 1,468.89mGy.cm Total DLP DATA REPOSITORY: All CT scans at this facility are submitted to the National Radiology Data Registry (NRDR) Dose Index Registry (DIR) with the [employer] (ACR). RADIATION OPTIMIZATION: All CT scans at this facility use at least one of these dose optimization te chniques: automated exposure control; mA and/or kV adjustment per patient size (includes targeted exa ms where dose is matched to clinical indication); or iterative reconstruction.
--- NOTE | 2024-02-02 16:51 | W.ED.GENAD ---
Discharge Plan Disposition Patient Disposition: Home Condition: Good Discharge Details Clinical Impression: Accidental fall from ladder, Acute right flank pain, Abrasion of elbow, left Primary Care Provider: Enrique Parikh ED Provider: Phillip Mckeon Home Meds and New Rx's Prescriptions: New lidocaine [Lidoderm] 5 % adhesive patch,medicated 1 patch Topical Q24H Qty: 15 0RF cyclobenzaprine 10 mg tablet 10 mg PO TID Qty: 14 0RF No Action venlafaxine [Effexor XR] 150 mg capsule,extended release 24hr 150 mg PO QPM ibuprofen 200 mg capsule 800 mg PO Q6H PRN venlafaxine [Effexor XR] 75 mg capsule,extended release 24hr 75 mg PO QPM Discharge Instructions Instructions: Bruised Rib Additional Instructions: At this time your CAT scan has returned and shows no evidence of fracture, broken rib, or significant internal bleeding or damage in your head chest or abdomen. There is no evidence of bony fracture. Please apply the Lidoderm patches to the tender areas as needed and prescribed. Please take Tylenol and Motrin as needed for pain. Use a heating pad to help prevent any back spasms. If you notice any worsening of your symptoms, or any new symptoms such as vomiting, diarrhea, fever, chills, shortness of breath, chest pain, numbness, weakness, or fainting , please return immediately to the emergency department for reevaluation. Please follow up with your primary care provider as soon as possible for reassessment and reevaluation. As always, it was a pleasure participating in your medical care today. Referrals: Enrique Parikh [Primary Care Provider] - Discharge Data Discharge Date/Time-TO BE ENTERED AT DEPARTURE: 02/02/24 17:45 HPI General Date/Time Provider Initiated Documentation: 02/02/24 14:27. HPI Narrative: 58-year-old male with a past medical history of high cholesterol and previous depression presents today for evaluation after falling off a ladder. Patient was about 14 feet up when the ladder fell to the right-hand side and he landed on his right chest. He did scrape his left elbow as well. Since then he has had notable pain in his right flank and back. He did strike his head gently, he was not wearing a helmet but he was wearing a hat. He denies any loss of consciousness. Since then he has had notable stiffness and pain with getting up ambulating walking around. This fall occurred a few hours ago. He is not on any blood thinners. He did take ibuprofen prior to arrival. No other complaints at this time. No other modifying factors. Related Data Home Medications ?Medication ?Instructions ?Recorded ?Confirmed venlafaxine 150 mg 150 mg PO QPM 06/10/18 02/02/24 capsule,extended release 24 hr (Effexor XR) ibuprofen 200 mg capsule 800 mg PO Q6H PRN 07/21/21 02/02/24 venlafaxine 75 mg capsule,extended 75 mg PO QPM 05/21/23 02/02/24 release 24 hr (Effexor XR) cyclobenzaprine 10 mg tablet 10 mg PO TID #14 tabs 02/02/24 lidocaine 5 % topical patch 1 patch topical Q24H #15 ea 02/02/24 (Lidoderm) Previous Rx's ?Medication ?Instructions ?Recorded cyclobenzaprine 10 mg tablet 10 mg PO TID #14 tabs 02/02/24 lidocaine 5 % topical patch 1 patch topical Q24H #15 ea 02/02/24 (Lidoderm) Allergies Allergy/AdvReac Type Severity Reaction Status Date / Time oxycodone AdvReac Severe Avoids all Verified 02/02/24 13:52 narcotics General Stated Complaint: Fall/Non TraumaCriteria ERICA: 3 Review of Systems All systems reviewed & are unremarkable except as noted in HPI and below Exam Narrative Exam Narrative: 1.Const: Well-nourished, Well-developed, appearing stated age 2.Eyes: PERRL, no conjunctival injection, and symmetrical lids. 3.ENT: Atraumatic external nose and ears. Moist MM. Neck: Symmetric, trachea midline, No thyromegaly. There is no evidence of raccoon eyes, spencer sign, CSF rhinorrhea, mastoid tenderness, cranial crepitus, hemotympanum, exophthalmos, or hyphema. Patient demonstrates intact dentition with no signs of tooth avulsion or fracture, no signs of jaw deformity, no evidence of a LeFort's fracture, with an intact palate, nose and orbital region. There is no evidence of a nasal septal hematoma. No proptosis. Jaw closes symmetrically. Airway is clear. 4.CVS: Regular rate and rhythm, Normal s1 and s2. No murmurs, carotid bruits, rubs, or gallops. Radial pulses 2+ bilaterally and symmetric. Dorsalis pedis pulses 2+ bilaterally and symmetric. 2+ capillary refill. No evidence of distant heart sounds. No extremity edema. No evidence of gross hemorrhage. 5.RESP: Airway clear, no obstructions. No abrasions or ecchymosis. Chest movement symmetric with respirations. Mild right-sided chest wall tenderness over ribs 02/07/11.. Trachea midline. No crepitus. No step offs. No paradoxical movements. Lungs are clear to auscultation bilaterally. No rales, rhonchi, wheezing or stridor. Breath sound symmetric. No Sucking chest wounds. No clinical evidence of significant chest trauma. 6.GI: Soft, nondistended, nontender. Bowel tones normoactive. No masses or organomegaly. No ecchymosis or abrasions. No periumbilical ecchymosis or seatbelt sign. No flank or CVA tenderness. No clinical signs of significant trauma. No clinical evidence of significant abdominal trauma. 7.MSK: No gross deformities or discolorations or lesions. Tolerates full range of motion of extremities without significant tenderness. All compartments of upper and lower extremities are soft with no tenderness. Mild abrasion is noted over the left elbow but no bony tenderness is noted on the elbow itself. Vascular exam demonstrates brisk capillary refill and intact pulses in all extremities. Pelvic exam demonstrates a stable pelvis, nontender to lateral compression and palpation of symphysis pubis.. No clinical evidence of significant musculoskeletal trauma. No midline tenderness to palpation over the CTLS spine. Normal ROM in flexion, extension, side bend, and rotation. Patient has +5 out of 5 strength in the lower extremities in dorsiflexion and plantarflexion, knee flexion and extension, hip flexion and extension. Normal strength for dorsiflexion and plantar flexion of the great toe bilaterally. There is +2 over 2 dorsalis pedis pulses bilaterally. There is normal sensation to the skin with light touch at the foot, knee, and hip. Normal saddle sensation. Good sensation over the deep sural nerve area bilaterally. Rectal exam demonstrates good rectal tone with excellent cynthia-rectal sensation. Reflexes are +2 over 4 in the patellar reflex bilaterally. +5 out of 5 strength in the medial, ulnar, radial nerve distribution bilaterally in the hands as well as intact light touch sensation to these dermatomes on the hands 8.Skin: Warm, Dry. Mild abrasion noted over the left elbow. No bony tenderness 9.Neuro: community affairs manager II-XII grossly intact. Sensation grossly intact, no focal neurologic deficits. All 6 cardinal planes of vision are fully intact. No evidence of rotatory or vertical nystagmus. The patient demonstrated a normal [id number], good dexterity. There was no evidence of dysdiadochokinesia. Patient was able to ambulate without difficulty. There was no wide-based gait. Romberg testing was normal. Atyi-nr-jout testing was normal. Sensation was intact bilaterally as well as muscle strength bilaterally for all extremities. Patient was able to verbalize butter cup with no slurring, or miss pronunciation. 10.Psych: (AAO) x3. Appropriate mood and affect Course Vital Signs Vital signs: Vital Signs Temperature 36.6 C 02/02/24 13:46 Pulse 89 02/02/24 13:46 Respiratory Rate 16 02/02/24 13:46 Blood Pressure 158/85 H 02/02/24 13:46 Pulse Oximetry 96 02/02/24 13:46 Temperature 36.6 C 02/02/24 13:46 Temperature Source Temporal Artery Scan 02/02/24 13:46 Pulse 89 02/02/24 13:46 Respiratory Rate 16 02/02/24 13:46 Respiratory Effort Normal 02/02/24 13:53 Blood Pressure 158/85 H 02/02/24 13:46 Pulse Oximetry 96 02/02/24 13:46 Pain Level 10 02/02/24 13:46 Lab/Test Results Lab/Test Results: Laboratory Tests Range/Units 02/02/24 02/02/24 15:00 15:24 WBC (4.4-10.8) 10^3/uL 14.82 H RBC (4.36-5.78) 10^6/uL 5.93 H Hgb (13.5-17.5) g/dL 16.9 Hct (40.0-50.0) % 49.3 MCV (80-95) fL 83 MCH (27.0-33.0) pg 28.5 MCHC (32.0-36.0) % 34.3 RDW (11.8-14.1) % 13.9 Plt Count (130-400) 10^3/uL 250 MPV (8.0-11.0) fL 10.0 Immature Gran % % 0.5 Neutrophils % % 76.8 Lymphocytes % % 15.9 Monocytes % % 6.0 Eosinophils % % 0.5 Basophils % % 0.3 Nucleated RBC % (0.0-0.3) % 0.0 Absolute Neutrophils (1.2-6.7) 10^3/uL 11.38 H Absolute Lymphocytes (1.2-3.4) 10^3/uL 2.36 Absolute Monocytes (0.1-0.8) 10^3/uL 0.89 H Absolute Eosinophils (0.0-0.7) 10^3/uL 0.07 Absolute Basophils (0.0-0.2) 10^3/uL 0.04 Sodium (136-145) mmol/L 136 Potassium (3.5-5.1) mmol/L 4.4 Chloride (98-107) mmol/L 103 Carbon Dioxide (21.0-32.0) mmol/L 22.3 Anion Gap (3-11) mmol/L 10.7 BUN (7-18) mg/dL 14 Creatinine (0.70-1.30) mg/dL 0.8 Est GFR (CKD-EPI 2020) (mL/min/1.73m2) 103.87 Glucose (74-106) mg/dL 122 H Calcium (8.5-10.1) mg/dL 9.1 Total Bilirubin (0.2-1.0) mg/dL 0.28 AST (15-37) U/L ALT (16-63) U/L 30 Alkaline Phosphatase (46-116) U/L 127 H Total Protein (6.4-8.2) g/dL 8.4 H Albumin (3.4-5.0) g/dL 3.8 Urine Color (Yellow) Yellow Urine Clarity (Clear) Clear Urine pH (5-8) 5.0 Ur Specific [place] (1.005-1.025) >= 1.030 H Urine Protein (Neg-Trace) mg/dL Negative Urine Ketones (Negative) mg/dL Trace H Urine Blood (Negative) Negative Urine Nitrite (Negative) Negative Urine Bilirubin (Negative) Small H Urine Urobilinogen (Up to 0.2) mg/dL 0.2 Ur Leukocyte Esterase (Negative) Negative Urine Glucose (Negative) mg/dL Negative Medical Decision Making 58-year-old male with a past medical history of high cholesterol and previous depression presents today for evaluation after falling off a ladder. Patient was about 14 feet up when the ladder fell to the right-hand side and he landed on his right chest. He did scrape his left elbow as well. Since then he has had notable pain in his right flank and back. He did strike his head gently, he was not wearing a helmet but he was wearing a hat. He denies any loss of consciousness. Since then he has had notable stiffness and pain with getting up ambulating walking around. This fall occurred a few hours ago. He is not on any blood thinners. He did take ibuprofen prior to arrival. No other complaints at this time. No other modifying factors. Exam demonstrates no evidence of significant trauma in the head neck left chest or abdomen or pelvis or legs. Patient demonstrates some paraspinal spasms, small the right flank and CVA tenderness on percussion and palpation. No other signs of major trauma. Suspect contused or fractured ribs, notable paraspinal spasms causing current pain. Because of the patient's age and the mechanism I do feel that CT imaging is indicated. Will get encinas CT imaging, update the patient's tetanus. The abrasion on his elbow does not show any evidence of laceration that requires suturing, but the area has been bandaged. Will monitor closely and reassess. Laboratory workup shows mild white count, platelets normal. Hemoglobin stable. CT scan of the head neck chest abdomen and pelvis demonstrates no acute process. No evidence of fracture. Splenomegaly is present but unchanged. No cervical acute pathologies. Urinalysis shows no hematuria. Patient stable. No evidence of pneumothorax or significant life-threatening fracture. Will recommend continued NSAID therapy at home, Flexeril for muscle relaxation, and Lidoderm patches. Patient feels comfortable with plan. Patient will be discharged home. Discussed red flags which to return. I have extensively reviewed the treatment plan and discharge instructions with the patient and their family. I have addressed all patient concerns at this time. The patient and family was made aware of what symptoms to monitor for that would warrant a return to the emergency department. Discussed the plan with the patient and family, they demonstrate verbal understanding and agreement with our assessment and plan at this time. The documentation in this chart was dictated using Dragon dictation software. Please excuse any dictation errors. FINDINGS: CHEST: LUNGS: There are mild increased markings in both lung bases but no evidence of prominent infiltrate or prominent lung contusion. No pleural effusions. No pneumothorax. No significant focal findings in the trachea and mainstem bronchi. MEDIASTINUM: No evidence of sternal fracture nor mediastinal hematoma. Visualized thyroid unremarkable.No incidental hilar nor mediastinal adenopathy. No incidental axillary adenopathy. No supraclavicular adenopathy. CARDIAC: Heart size is normal. There is no pericardial effusion.Thoracic aorta appears intact-unremarkable. OSSEOUS: No significant osseous lesions.No fractures.. ABDOMEN: There is no ascites. LIVER: No evidence of liver laceration nor subcapsular hematoma. There is a benign cyst in the left hepatic lobe which measures 3.1 x 2 cm, unchanged from 05/21/2023. A smaller unchanged 8 mm cyst is again noted posteriorly in the right hepatic lobe. No new focal liver findings. There are no dilated intrahepatic ducts. GALLBLADDER/BILIARY: No obvious gallbladder pathology. CBD is not dilated. PANCREAS: There are multiple parenchymal calcifications noted in the uncinate process of the pancreas, similar to previous. No obvious mass in the pancreas nor dilated pancreatic duct. A few other tiny parenchymal calcifications are noted at level the neck and body of the pancreas, similar to previous. SPLEEN: There is splenomegaly again noted. The cephalocaudal measurement of the spleen is 15.4 cm which is similar to previous. No evidence of splenic laceration or subcapsular hematoma. There are no splenic lesions evident the splenic and portal veins are patent. Splenic and portal veins are patent. ADRENALS: There are no significant adrenal masses. KIDNEYS: No calculi nor hydronephrosis. No solid renal masses. No cysts evident. ABDOMINAL AORTA: There is some atherosclerotic involvement of the infrarenal abdominal aorta with mild fusiform dilatation with maximum diameter 2.4 cm, unchanged from prior CT of April 2023. There is no aneurysmal dilatation of the iliac arteries. LYMPH NODES: There is no retroperitoneal nor paraaortic adenopathy. ABDOMINAL WALL: Small fat only containing umbilical hernia again noted GI: There is no evidence of bowel obstruction.No evidence of bowel wall hematoma nor mesenteric hematoma. . PELVIS: LYMPH NODES: There is no intrapelvic nor inguinal adenopathy. GI: No evidence of appendicitis.No evidence of sigmoid diverticulitis. URINARY BLADDER: No calculi nor masses evident no intraluminal clots. REPRODUCTIVE: Prostate size is normal. OSSEOUS: No acute fractures. Multilevel Schmorl's nodes. Disc space narrowing L4-5 and L5-S1. No listhesis. No significant osseous lesions. IMPRESSION: 1. No significant acute trauma sequelae in the chest, abdomen, and pelvis. 2. Splenomegaly again noted, unchanged from April 2023. No splenic lesions evident. Splenic and portal veins are patent. 3. Again noted is a benign-appearing cyst in the left hepatic lobe and multiple calcifications in the uncinate process of the pancreatic head, also unchanged Called by myself to the ER physician 02/02/2024 4:35 p.m. FINDINGS: BRAIN: There are no skull fractures nor fluid in the visualized paranasal sinuses. There is no evidence of intracranial hemorrhage, mass effect, or shift of midline structures. There are no extra-axial fluid collections. The ventricles are not enlarged or shifted and there is no blood within the ventricular system nor within the basal cisterns. CERVICAL SPINE: There is no evidence of fracture nor listhesis. No significant prevertebral soft tissue swelling. C1 arch and odontoid process appear intact. There is chronic disc space narrowing at C 5-6 and C6-7 levels. There also small bilateral Luschka joint osteophytes at these 2 levels. Calcification in the posterior longitudinal ligament noted at C5-6. Calcification in the supraspinous ligament noted at C5. There are degenerative changes in the right-side facet joint at the C3-4 level. There is no significant facet joint malalignment. No significant osseous lesions evident. IMPRESSION: No acute intracranial findings on this noninfused CT scan of the brain. No evidence of cervical spine fracture, malalignment, nor acute compromise of the cervical spinal canal. Chronic degenerative disc disease C5-6 and C6-7 levels. Quality:SDOH Health Related Social Needs: No Data to Display PFSH All Active Problems Abrasion of elbow, left (Acute) Acute right flank pain (Acute) Accidental fall from ladder (Acute) Folic acid deficiency (Acute) Tobacco abuse (Acute) Splenomegaly (Acute) Thrombocytopenia (Acute) Foreign body (FB) in soft tissue (Acute) partial removal 08/2021. 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 mg History of depression Hyperlipidemia Social History Smoking/Tobacco Use Status: Current every day Tobacco Type: cigarettes Smoking risk assessment performed?: Yes Alcohol Intake: never Drug use: Current Sobriety Substance use type: does not use Housing: house Do you feel safe at home: Yes Do you feel safe in your relationship?: Yes
[2024-02-02] MEDS: Lidocaine 5% Patch 1 PATCH TP (17:00)
== END 2024-02-02 17:45 | disposition home or self-care (01) ==
PROVIDERS: Emergency Provider Student in an Organized Health Care Education/Training Program; PCP Internal Medicine
DX: S50.312A Abrasion of left elbow, initial encounter (principal); R10.32 Left lower quadrant pain; Z23 Encounter for immunization; W11.XXXA Fall on and from ladder, initial encounter
CPT/HCPCS: 36415; 74177; 80053; 90471; 90715; 99285; 70450; 71260; 72125; 81003; 85025; 99283; J3490

== ENCOUNTER 2024-10-16 15:18 | Outpatient (REF) | payer MEDICAID, SELFPAY ==
[2024-10-16 21:20] LABS: HCT 48.4 % (40.0-50.0); HGB 16.3 g/dL (13.5-17.5); MCH 27.9 pg (27.0-33.0); MCHC 33.7 % (32.0-36.0); MCV 83 fL (80-95); MPV 11.6 fL (8.0-11.0); Platelet Count 250 10^3/uL (130-400); RBC 5.84 10^6/uL (4.36-5.78); RDW 13.2 % (11.8-14.1); RDW-SD 39.6 fL; WBC 11.39 10^3/uL (4.4-10.8)
[2024-10-16 22:28] LABS: Cholesterol 215 mg/dL (<200); HDL Cholesterol 28 mg/dL (>or=40); Triglyceride 530 mg/dL (<150)
[2024-10-16 23:57] LABS: LDL CHOLESTEROL 116 mg/dL (<100)
== END 2024-10-16 15:19 | disposition home or self-care (01) ==
LOC: NCHCN 15:18
PROVIDERS: PCP Internal Medicine; Visit Provider Internal Medicine
DX: K74.60 Unspecified cirrhosis of liver (principal)
CPT/HCPCS: 80061; 81596; 83721; 85027

== ENCOUNTER 2024-12-04 03:44 | Outpatient (CLI) | payer MEDICAID, SELFPAY ==
[2024-12-04 13:03] LABS: TSH 2.32 uIU/mL (0.36-3.74)
[2024-12-06 16:10] LABS: ALT 29 U/L (7-55); ActiTest Grade A0; ActiTest Interpretation no activity; ActiTest Score 0.15; Apoliprotein A1 98 mg/dL (>=120); Bilirubin, Total 0.4 mg/dL (0.0 - 1.2); FibroTest Interpretation minimal fibrosis; FibroTest Score 0.34; FibroTest Stage F1-F2; GGT 29 U/L (8 - 61)
== END 2024-12-04 03:45 | disposition home or self-care (01) ==
LOC: LOS 03:44
PROVIDERS: PCP Internal Medicine; Visit Provider Internal Medicine
DX: K74.60 Unspecified cirrhosis of liver (principal); E78.2 Mixed hyperlipidemia
CPT/HCPCS: 36415; 81596; 84443

== ENCOUNTER 2025-02-02 05:30 | Outpatient (CLI) | payer MEDICAID, SELFPAY ==
--- NOTE | 2025-02-02 | DI.CTLCSR_ITS ---
Exam(s) CT CHEST LUNG CANCER SCREEN EXAM: CT CHEST LUNG CANCER SCREEN CLINICAL HISTORY: NICOTINE DEPENDENCE F17.210 TOBACCO TECHNIQUE: Imaging Protocol: Axial computed tomography images with coronal and sagittal reformatted images were created and reviewed. Low dose screening protocol. COMPARISON: CT CT CHEST/ABD/PEL W from 02/02/2024 FINDINGS: Tracheobronchial tree: No bronchiectasis or mucus plugging. Mediastinum and Kim: No dominant adenopathy or fluid collection. Pulmonary parenchyma: No consolidation or dominant measurable mass. Minimal emphysematous changes. No significant interstitial changes. Lung Nodules: None. Pleura: No effusion. No pneumothorax. Heart: The heart is not dilated. No coronary artery calcifications are seen. No pericardial effusion. Aorta: Thoracic aorta non-dilated. Upper abdomen: Hepatic cyst again noted. Bones: Unremarkable prominent endplate osteophytes in the thoracic spine. Soft Tissues: Unremarkable. IMPRESSION: No suspicious pulmonary nodules. Lung RADS Cat 1 - Negative: No nodules and definitely benign nodules Lung-RADS 1.0 CATEGORIES: Category 0 - Prior chest CT exam(s) being located for comparison. Category 1 - Annual screening in 12 months. No nodules or definitely benign nodules. Category 2 - Annual screening in 12 months. Benign appearance. Nodules with low likelihood of becoming active cancer. Category 3 - 6-month follow-up. Probably benign. Short-term follow-up suggested. Nodules with low likelihood of becoming active cancer. Category 4A - 3-month follow-up and CT/PET if >8 mm in size. Suspicious finding. Findings which require additional testing. Category 4B - Findings which require additional testing and tissue sampling. Category 4X - Category 3 or 4 nodules with additional features or imaging findings that increases the suspicion of malignancy. Modifier S- Potentially clinically significant findings (non lung cancer) RADIATION DOSE DELIVERED: 40.94mGy.cm Total DLP DATA REPOSITORY: All CT scans at this facility are submitted to the National Radiology Data Registry (NRDR) Dose Index Registry (DIR) with the [employer] ([employer]). RADIATION OPTIMIZATION: All CT scans at this facility use at least one of these dose optimization techniques: automated exposure control; mA and/or kV adjustment per patient size (includes targeted exams where dose is matched to clinical indication); or iterative reconstruction.
== END 2025-02-02 05:50 ==
PROVIDERS: PCP Internal Medicine; Visit Provider Internal Medicine
DX: Z12.2 Encounter for screening for malignant neoplasm of respiratory organs (principal); F17.210 Nicotine dependence, cigarettes, uncomplicated
CPT/HCPCS: 71271

== ENCOUNTER 2025-05-09 06:29 | Day surgery (SDC) | payer MEDICAID, SELFPAY ==
--- NOTE | 2025-05-08 17:18 | W.ANESPRE ---
General Info Date of Service Date Performed: 05/09/25 Height: 6 ft Weight: 96.615 kg Body Mass Index (BMI): 28.8 Surgical Procedure: Operation Date: 05/09/25 07:35 Proposed Procedure Side Surgeon wayne aDniel MD Meds Allergies and Home Medications Allergies Allergy/AdvReac Type Severity Reaction Status Date / Time oxycodone AdvReac Severe Avoids all Verified 05/09/25 06:28 narcotics Home Medication ?Medication ?Instructions ?Recorded ibuprofen 200 mg capsule 800 mg PO Q6H PRN 07/21/21 fluoxetine 40 mg capsule 40 mg PO DAILY 04/10/25 bisacodyl 5 mg tablet,delayed 5 mg PO ONCE #4 tabs 04/18/25 release (Dulcolax (bisacodyl)) polyethylene glycol 3350 17 17 g PO ONCE #238 grams 04/18/25 gram/dose oral powder Current Visit Medications: Current Medications Generic Name Dose Route Start Last Admin Trade Name Freq PRN Reason Stop Dose Admin Ringer's Solution 1,000 mls @ 80 mls/hr 05/09/25 06:00 IV 05/09/25 23:59 INFUSION OMAR Sodium Chloride 0 ml 05/09/25 06:00 Normal Saline Flush 10 Ml Syr IV 05/09/25 23:59 PRN PRN Sodium Chloride 0 ml 05/09/25 06:00 Normal Saline 10 Ml Vial IJ 05/09/25 23:59 DIRECTED PRN Sterile Water 0 ml 05/09/25 06:00 Water,Injection,Sterile 10 Ml Vial IJ 05/09/25 23:59 DIRECTED PRN PFSH Active Problems Active Problems: Problem Status Onset Code Folic acid deficiency Acute E53.8 Tobacco abuse Acute Z72.0 Splenomegaly Acute R16.1 Thrombocytopenia Acute D69.6 Foreign body (FB) in soft tissue Acute M79.5 Erectile dysfunction Acute N52.9 Overweight Acute E66.3 Smoker Acute F17.200 IVANNA (obstructive sleep apnea) Chronic G47.33 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 mg History of depression Hyperlipidemia Surgical History Surgical History Hx of colonoscopy Tobacco Smoking/Tobacco Use Status: Current every day Tobacco Type: cigarettes Smoking cigarettes per day: 7 Alcohol Alcohol Intake: never Substance Use Substance use: Current Sobriety Substance use type: does not use Vital Signs and Lab Results Vital Signs Comment Vital Signs Comment:: Temp Pulse Resp BP Pulse Ox 36 C L 102 H 16 116/85 94 05/09/25 06:42 05/09/25 06:42 05/09/25 06:42 05/09/25 06:42 05/09/25 06:42 Imaging and Studies Imaging and Studies Study information below may be from another EMR and interpreted by another provider. Please see original notes in EMR for more complete details. EKG Summary: 05/21/23 HR:118 bpm ECG Measurements Heart Rate 118 AXIS NJ 155 P 24 QRSd 101 QRS -47 QT 316 T62 QTc 443 Conclusion Sinus tachycardia...rate> 99 LAD, consider left anterior fascicular block...axis(240,-40), S>R II III aVF Borderline ST elevation, anterior leads...ST >0.15mV in V1-V4 I have reviewed and I agree with the emergency room physician's ECG interpretation. Anesthesia Assessment and Plan Anesthesia History Personal History: No History of Anesthesia Complications Family History: No Family History of Anesthesia Complications Exercise Tolerance Exercise Tolerance: Metabolic Equivalents>4 Pertinent Negatives Pertinent Negatives: No Symptoms of GERD, No Major Cardiovascular Symptoms or Complaints, No Major Pulmonary Symptoms or Complaints and No History of CVA/TIA Cardiac & Pulmonary Exam Cardiac Exam: Normal S1/S2 Heart Sounds Pulmonary Exam: Clear Bilateral Breath Sounds Implantable Cardiac Device Does patient have a Pacemaker or an ICD?: No Airway Exam Known Difficult Airway: No Mallampati Class: 2 Mouth Opening: Normal (> 3cm) Thyromental Distance: Greater than 3 cm Neck Range of Motion: Full ROM Neck Circumference: Normal Teeth Condition: Normal Dentition ASA Classification ASA Score: ASA 2 Emergency Case?: No NPO Status NPO Status: NPO Clears >2 hours, Solids >8 hours Anesthesia Plan Resuscitation Status: Full Code Anesthesia Technique: General Anesthesia Airway Planned: Natural Airway Monitors Used: Standard Monitors Preoperative Comments:: 59 yo for colo. Sig PMHx: HTN, IVANNA, depression. Smoker.
[2025-05-09 06:42] VITALS: BP 116/85; PULSE 102; RESP 16; TEMP 36; O2SAT 94
[2025-05-09] MEDS: Lactated Ringers 1,000 ML 80 ML IV (06:56)
[2025-05-09 07:03] VITALS: BMI 28.8
--- NOTE | 2025-05-09 07:37 | BOWEL_PTH ---
PATIENT: Sunday Lainez LOC: [facility] U#:[id number] AGE/SX: 59/M ROOM: RE05/09/[address]: Viridiana Daniel : 1965 BED: DIS: 05/09/2025 SPEC #: [id number] RECD: 05/09/25 12:52 STATUS: SIMONE RE #: [id number] MARGO: 05/09/25 07:[address]: Viridiana Daniel DEPT: Surgical Specimen RECD BY: Syeda Zavala ENTERED: 05/09/25 12:52 SP TYPE: Bowel OTHR DR: Enrique Parikh Tissues: 1 - BIOPSY BOWEL 2 - BIOPSY BOWEL Procedures: GROSS AND MICRO LEVEL 4 Comments: [id number]
[2025-05-09 07:45] VITALS: BP 135/90; PULSE 87; RESP 18; TEMP 36.4; O2SAT 93
--- NOTE | 2025-05-09 07:47 | W.PM.DSUDISC ---
Date of service: 05/09/25 Discharge Plan Disposition Patient Disposition: Home Condition: Good Discharge Details Reason For Visit: Personal history of colon polyps Attending Provider: Viridiana Daniel Primary Care Provider: Enrique Parikh Recommendations for Follow Up Recommended tests to be ordered by follow up provider: Follow up pathology Home Meds and New Rx's Prescriptions: Continued ibuprofen 200 mg capsule 800 mg PO Q6H PRN fluoxetine 40 mg capsule 40 mg PO DAILY Discontinued bisacodyl [Dulcolax (bisacodyl)] 5 mg tablet,delayed release (DR/EC) 5 mg PO ONCE Qty: 4 0RF Rx Instructions: Take per colonoscopy instructions provided by ordering providers office polyethylene glycol 3350 17 gram/dose powder 17 g PO ONCE Qty: 238 0RF Rx Instructions: Take per colonoscopy instructions provided by ordering providers office Discharge Instructions Instructions: Colon polyps Additional Instructions: Your colonoscopy went well today. You did have 2 small polyps which were removed. These polyps will be sent to pathology. We will contact you once these results return and make recommendations for when to have a repeat colonoscopy. If you have any questions or concerns please contact the surgery office. 1. If tolerated, consume a soft, low fiber diet for 1-2 days. 2[address] Do not drive, drink alcohol, operate machinery, make critical decisions, or do activities that require coordination or balance for 24 hours. 3. Because air was put into your colon during the procedure, expelling air from your rectum (passing gas or farting) is normal. 4. You may not have a bowel movement for 1-3 days because of the colonoscopy prep. This is normal. 5. Go directly to the emergency room if you notice any of the following: Develop chills (warm to touch), or if you have a thermometer and your temperature is above 101 Difficulty breathing or difficultly swallowing Persistent vomiting Severe abdominal pain, other than gas cramps Severe chest pain Black, tarry stools Any bleeding ? exceeding one tablespoon 6. Call your physician if the site where your intravenous was started becomes red, swollen, painful, and warm to touch. 7. Your physician has reviewed your pre-procedure medications. Please continue to take those medications as previously ordered. You will be given specific information/education regarding any changes to your medications before leaving. Stand Alone Forms: Anesthesia Discharge Inst., Zayda Yanez (JOSELYNU), Portal Information Activity:: Activity as Tolerated Diet:: As Tolerated Discharge Orders Discharge Orders: Discharge Order (Routine); Ordered 05/09/25 Ordered By: Viridiana Daniel
--- NOTE | 2025-05-09 07:50 | W.COLOREPORT ---
Date of service: 05/09/25 Time of Service: 07:50 Colonoscopy Report Date of procedure: 05/09/25 Pre-op diagnosis general: Personal history of colon polyps Post-op diagnosis procedure note: same Procedure: Colonoscopy with polypectomy Surgeon: Viridiana Daniel Anesthesia Type: General:No Airway Estimated blood loss (mL): 1 Pathology: other (Colon polyp at 40cm, colon polyp at 35cm ) Complications: None Disposition: PACU Indications: Patient is a 59-year-old male who presents for a colonoscopy given a personal history of polyps. He denies any changes in his bowel habits or family history of colon cancer. Prep: Miralax/Dulcolax Procedure Start Time: 07:28 Procedure End Time: 07:41 Retraction Time: 10 Findings: Small polyp at 40 cm removed with cold forceps. Additional 5 mm polyp at 35 cm removed with cold snare. Remainder of colonoscopy unremarkable. Procedure Description: The patient was brought to the endoscopy suite and placed in the left lateral decubitus position. After induction of IV sedation, a digital rectal exam was performed. Digital exam was normal. The colonoscope was then passed to the cecum without difficulty. Cecal intubation was confirmed by the identification of the appendiceal orifice and the ileocecal valve. Upon withdrawing the colonoscope, all mucosal surfaces were inspected. The prep was noted to be adequate. At 40 cm, there was a small polyp, which was removed using cold forceps in its entirety. At 35cm there was a 5mm polyp removed with cold snare in its entirety. The specimens were retrieved for pathological analysis. There was no other evidence of mucosal abnormality, polyp or cancer. Retroflexion in the rectum showed evidence of hemorrhoids. The patient tolerated the procedure well with no complications. Postoperatively, the patient was transferred to the recovery room in stable condition. [place] Bowel Prep [place] Bowel Prep Right Colon: 3 Left Colon: 3 Transverse Colon: 3 Total Score: 9
--- NOTE | 2025-05-09 07:56 | W.ANESPOSTOP ---
Postoperative Evaluation Date, Time and Location Date Performed: 05/09/25 Time Performed: 07:50 Patient Location: Day Surgery Unit Vital Signs Most Recent Imported Vital Signs: Most Recent Vital Signs Temp Pulse Resp BP Pulse Ox 36.4 C L 87 18 135/90 93 05/09/25 07:45 05/09/25 07:45 05/09/25 07:45 05/09/25 07:45 05/09/25 07:45 Pain Score Most Recent Pain Score: Most Recent Pain Score Pain Level 0 05/09/25 07:45 Assessment Mental Status: Awake (Alert & Oriented to Patient Baseline) Airway and Respiratory Function: Patent airway with normal (patient baseline) respiratory exam Cardiovascular Function: Hemodynamically Stable Hydration Status: Adequately Hydrated Nausea & Vomiting: No Nausea or Vomiting Pain: Pt. Denies Any Pain Peripheral Nerve Block: Patient did not receive a nerve block
[2025-05-09 08:09] VITALS: BP 119/81; PULSE 84; RESP 18; TEMP 36.2; O2SAT 94
== END 2025-05-09 08:20 | disposition home or self-care (01) ==
PROVIDERS: PCP Internal Medicine; Visit Provider Student in an Organized Health Care Education/Training Program
PROC: 0DJD8ZZ Inspection of Lower Intestinal Tract, Via Natural or Artificial Opening Endoscopic (ICD-10-PCS; CPT 45378; principal; 2025-05-09 07:30)
DX: Z12.11 Encounter for screening for malignant neoplasm of colon (principal); Z72.0 Tobacco use; G47.33 Obstructive sleep apnea (adult) (pediatric); D12.5 Benign neoplasm of sigmoid colon
CPT/HCPCS: 45385; 45380; 88305; J2704